=== PATIENT | female | born 1945 | race Caucasian/White ===

== ENCOUNTER 2018-07-01 05:32 | Outpatient (RCR) | payer MEDICARE, SELFPAY ==
[2018-07-01] MEDS: Normal Saline Flush 10 ML SYR IVP (10:55)
[2018-07-01 11:17] LABS: Abs Immature Grans 0.14 k/cumm (0.0-0.09); HGB 9.4 g/dL (12.0-15.5); Mean Corp. HGB Concentration 31.3 g/dL (32.0-36.0); Mean Corpuscular Hemoglobin 35.6 pg (27.0-33.0); Mean Corpuscular Volume 113.6 fL (80-95); Mean Platelet Volume 10.5 fL (8.0-11.0); RBC 2.64 m/cumm (4.00-5.20); RBC Distribution Width 15.3 % (11.7-14.6); White Blood Cell Count 5.48 k/cumm (4.4-10.8)
[2018-07-01 11:37] LABS: Absolute Lymphocyte Count 0.93 k/cumm (1.2-3.4); Absolute Monocyte Count 0.44 k/cumm (0.11-0.7); Absolute Neutrophil Count 4.06 k/cumm (1.2-6.7); Diff Comment Manual Differential; Nucleated RBC 1 /100WBC; Platelet Count 137 x1000/uL (130-400)
[2018-07-01 11:38] LABS: Basophilic Stippling Present; Macrocytosis 3+; Polychromasia Present
[2018-07-17] MEDS: Normal Saline Flush 10 ML SYR IVP (13:25)
[2018-07-17] MEDS: Heparin 500 UNITS/5 ML SYRINGE IV (13:25)
[2018-07-17 14:01] LABS: Abs Immature Grans 0.37 k/cumm (0.0-0.09); Absolute Basophil Count 0.04 k/cumm (0.0-0.2); HCT 33.4 % (36.0-46.0); HGB 10.4 g/dL (12.0-15.5); Mean Corp. HGB Concentration 31.1 g/dL (32.0-36.0); Mean Corpuscular Hemoglobin 33.9 pg (27.0-33.0); Mean Corpuscular Volume 108.8 fL (80-95); Mean Platelet Volume 8.5 fL (8.0-11.0); Platelet Count 270 x1000/uL (130-400); RBC 3.07 m/cumm (4.00-5.20); RBC Distribution Width 16.4 % (11.7-14.6); White Blood Cell Count 4.17 k/cumm (4.4-10.8)
[2018-07-17 14:25] LABS: ALT 14 U/L (12-78); AST 11 U/L (15-37); Albumin 2.5 g/dL (3.4-5.0); Alkaline Phosphatase 92 U/L (46-116); Anion Gap 10.5 mmol/L (3-11); BUN 17 mg/dL (7-18); Bilirubin, Total 0.8 mg/dL (0.2-1.0); CO2 25.5 mmol/L (21.0-32.0); CREATININE 1.41 mg/dL (0.55-1.02); Calcium 10.7 mg/dL (8.5-10.1); Chloride 103 mmol/L (98-107); Estimated GFR 36.66 (mL/min/1.73m2); Glucose 110 mg/dL (70-100); Magnesium 1.1 mg/dL (1.8-2.4); Potassium 3.4 mmol/L (3.5-5.1); Sodium 139 mmol/L (136-145); Total Protein 8.6 g/dL (6.4-8.2)
[2018-07-17 14:27] LABS: Absolute Lymphocyte Count 1.21 k/cumm (1.2-3.4); Absolute Monocyte Count 0.58 k/cumm (0.11-0.7); Absolute Neutrophil Count 1.79 k/cumm (1.2-6.7); Atypical Lymphocytes % 1
[2018-07-17 14:30] LABS: Hypochromasia 1+; Macrocytosis 1+; Polychromasia Present
[2018-07-20 10:24] LABS: Kappa Free Light Chain 0.33 mg/dl (0.33-1.94); Lambda Free Light Chain <0.44 mg/dl (0.57-2.63)
[2018-07-20 11:25] LABS: IgA <13 mg/dL (85-499); IgG 2894 mg/dL (610-1616); IgM <12 mg/dL (35-242)
[2018-07-20 13:41] LABS: Monoclonal Spike 37.5 %; Total Protein 7.5 g/dl (6.3-8.2)
== END 2018-07-24 ==
LOC: INF 07-17 05:32
PROVIDERS: PCP Family Medicine; Visit Provider Internal Medicine Hematology & Oncology
DX: C90.00 Multiple myeloma not having achieved remission (principal); Z45.2 Encounter for adjustment and management of vascular access device
CPT/HCPCS: 36591 ×2; 80053; 82784; 83735; 83883; 84165; 85025

== ENCOUNTER 2018-07-08 13:06 | Emergency (ER) | payer MEDICARE, SELFPAY ==
[2018-07-08] VITALS (22 sets, daily range): BP systolic 98–161; BP diastolic 60–92; PULSE 84–115; RESP 13–24; TEMP 37.1–37.2; O2SAT 92–99
--- NOTE | 2018-07-08 13:37 | ED.GENADUL ---
Disposition Clinical Impression: CHF (congestive heart failure), Neutropenia, Shortness of breath Disposition: HOME Condition: Stable Instructions: Pulmonary Edema (ED) Additional Instructions: your lab work showed you have low neutrophils. You also have mild amount of fluid in your lung increase your morning dose of lasix to 80mg follow up with your primary care office within a week if you have worsening shortness of breath or fevers return to the emergency department Prescriptions: Levofloxacin 750 mg PO DAILY #6 tablet Medical Decision Making - Lab Data Results reviewed for labs ordered during visit: Yes - EKG Data -: EKG Interpreted by Me EKG shows normal: axis, intervals, QRS complexes Rate: normal Interpretation: no acute changes 07/08/18 13:40 afib, no acute changes when compared to old ekg - Radiology Data Radiology results: image reviewed interpreted by me: mild chf - Medical Decision Making pt here with general weakness and shortness of breath for a week or so. No chest pian or changes on ekg so doubt acs. No hypoxia or tachycardia so doubt Pe at this time and no evidence of dvt on exam. Will eval for anemia and obtain chest xray to eval for pna pt remains stable, does have some pulmonary edema on chest xray, no infiltrate seen, will order IV lasix given her hx of chf and is on lasix at home. Awaiting lab work labs show neutropenia with anc of 700 but no fevers here and denies any fevers at home. Otherwise no acute changes. she is ambulating on her own without significant work of breathing and normal oxygen levels. She feels well enough to try d/c and f/u with pcp, will have her f/u with pcp's office within a week, return precautions given. She has no fever now, will start on neutropenic antibacterial ppx with levofloxacin - Differential Diagnosis anemia, pna, electrolyte abnormality History of Present Illness - General Chief complaint: RespSymp Stated complaint: UNKNOWN Time Seen by Provider: 07/08/18 13:08 Source: patient Limitations: no limitations - History of Present Illness Initial comments: 72 yo female with hx of afib on eliquis, multiple myeloma who receives chemotherapy twice a week per pt, who comes in with chief complaint of general weakness and shortness of breath over the course of the week and was sent here by the cancer center for these symptoms. She denies chest pain, vomit, travel, fevers. She is speaking in full sentencess in no respiratory distress with clear lungs, no calf pain and no lower extremity edema MD Complaint: weakness Onset/Timin -: week(s) Improves with: none Worsens with: none Associated Symptoms: shortness of breath Treatments Prior to Arrival: none - Related Data Arm Brace [Elbow Support] 1 each MC DAILY #1 each 02/16/15 Nystatin 0 TP QID #60 g 05/30/16 Diphenoxylate HCl/Atropine [Diphenoxylate-Atrop 2.5-0.025] 1 - 2 tab PO QID PRN #30 tab-cap 01/14/17 Nystatin Powder 60 GM [Mycostatin Powder] 1 applic TP TID #1 jar 11/24/17 Acyclovir [Zovirax] 400 mg PO BID #60 tab-cap 02/10/18 Dexamethasone 0.5 mg PO DAILY #30 tab 03/31/18 Ondansetron [Ondansetron Odt] 4 mg SL Q8H PRN PRN 04/26/18 Apixaban [Eliquis] 5 mg PO BID #180 tab 04/29/18 Metoprolol Succinate 100 mg PO DAILY #90 tab-cap 04/29/18 Proventil Hfa 2 puff IH Q6H PRN #1 inhaler 04/29/18 Sucralfate 1 g PO AC and HS #360 tab-cap 05/21/18 Magnesium Oxide [Magnesium] 400 mg PO BID #180 capsule 05/26/18 Potassium Chloride 20 meq PO BID #180 tab.er.prt 05/26/18 Cetirizine HCl 10 mg PO DAILY #30 tab-cap 06/19/18 Furosemide 2 tab PO BID #360 tab-cap 06/19/18 Omeprazole 40 mg PO DAILY #90 tab-cap 06/19/18 Levofloxacin 750 mg PO DAILY #6 tablet 07/08/18 Allergies Allergy/AdvReac Type Severity Reaction Status Date / Time adhesive Allergy Unverified 07/08/18 13:33 rosuvastatin calcium AdvReac Dizziness/L Unverified 07/08/18 13:33 [From Crestor] ightheade simvastatin [From Zocor] AdvReac Dizziness/L Unverified 07/08/18 13:33 ightheade Review of Systems Constitutional: denies: chills, fever Respiratory: shortness of breath. denies: cough Cardiovascular: denies: chest pain Gastrointestinal: denies: nausea, vomiting Skin: denies: rash Neurological: denies: headache Comment: All other systems reviewed and negative Past Medical History - Past Medical History Medical history: AFIB, cancer (Multiple myeloma), CHF, diabetes, DVT, GERD, hypertension Surgical history: cholecystectomy, hysterectomy - Social History Alcohol use: none Drug use: none General Exam - General Limitations: no limitations General appearance: alert, in no apparent distress - Head Head exam: Present: atraumatic - Eye Eye exam: Present: normal apperance - ENT ENT exam: Present: mucous membranes moist - Neck Neck exam: Present: normal inspection, full ROM. Absent: meningismus - Respiratory Respiratory exam: Present: normal lung sounds bilaterally. Absent: respiratory distress - Cardiovascular Cardiovascular Exam: Present: regular rate, normal rhythm, normal heart sounds, other (Hr 90 on my exam) - GI/Abdominal GI/Abdominal exam: Present: soft. Absent: distended, tenderness, guarding, rebound, rigid - Extremities Exam Extremities exam: Present: normal inspection. Absent: pedal edema, calf tenderness - Neurological Exam Neurological exam: Present: alert, oriented X3 - Psychiatric Psychiatric exam: Present: normal affect - Skin Skin exam: Present: warm Course Vital Signs - 24 hr 0815/18 13:29 Temperature 98.8 F Pulse 115 H Respiratory 22 Rate Blood Pressure 130/60 Pulse Oximetry 96
[2018-07-08 14:13] LABS: Abs Immature Grans 0.02 k/cumm (0.0-0.09); Absolute Basophil Count 0.01 k/cumm (0.0-0.2); HCT 31.8 % (36.0-46.0); HGB 9.9 g/dL (12.0-15.5); Mean Corp. HGB Concentration 31.1 g/dL (32.0-36.0); Mean Corpuscular Hemoglobin 34.1 pg (27.0-33.0); Mean Corpuscular Volume 109.7 fL (80-95); Mean Platelet Volume 10.4 fL (8.0-11.0); Platelet Count 121 x1000/uL (130-400); RBC Distribution Width 15.8 % (11.7-14.6)
--- NOTE | 2018-07-08 14:23 | DI.REPORT_ITS ---
SYMPTOMS/DIAGNOSIS: SHORTNESS OF BREATH AP AND LATERAL CHEST: The heart is enlarged. There is an indwelling right subclavian catheter, the tip of which overlies the junction of the SVC and right atrium. Upper lobes of the lungs appear generally clear with some mildly increased markings in the lower lobes and a small amount of fluid in the fissures; the findings appear increased in comparison with a chest film of 04/26/2018. The findings are suggestive of early or mild CHF. Pneumonitis not excluded on the basis of this examination, clinical correlation requested.
[2018-07-08 14:26] LABS: INR 1.2 (1.0-3.5); PTT Activated 24.3 sec (21.0-31.4); Prothrombin Time 11.8 sec (9.3-10.8)
[2018-07-08 14:33] LABS: ALT 25 U/L (12-78); AST 12 U/L (15-37); Albumin 2.3 g/dL (3.4-5.0); Alkaline Phosphatase 133 U/L (46-116); Anion Gap 10.9 mmol/L (3-11); BUN 12 mg/dL (7-18); Bilirubin, Total 1.1 mg/dL (0.2-1.0); CO2 27.1 mmol/L (21.0-32.0); CREATININE 1.09 mg/dL (0.55-1.02); Calcium 9.9 mg/dL (8.5-10.1); Chloride 101 mmol/L (98-107); Estimated GFR 49.34 (mL/min/1.73m2); Glucose 132 mg/dL (70-100); Magnesium 1.5 mg/dL (1.8-2.4); NT-proBNP 4172 pg/mL; Potassium 3.2 mmol/L (3.5-5.1); Sodium 139 mmol/L (136-145); Total Protein 8.2 g/dL (6.4-8.2); Troponin I < 0.02 ng/mL (0.00-0.06)
[2018-07-08 14:35] LABS: White Blood Cell Count 1.39 k/cumm (4.4-10.8)
[2018-07-08] MEDS: Furosemide 40 MG/4 ML VIAL IVP (14:35)
[2018-07-08 14:36] LABS: Absolute Eosinophil Count 0.03 k/cumm (0.0-0.7); Absolute Lymphocyte Count 0.33 k/cumm (1.2-3.4); Absolute Monocyte Count 0.31 k/cumm (0.11-0.7); Diff Comment Manual Differential; Macrocytosis 2+; Polychromasia Present
[2018-07-08] MEDS: Normal Saline Flush 10 ML SYR IVP (14:36)
[2018-07-08 15:07] LABS: Bilirubin Negative (Negative); Blood Negative (Negative); Clarity Clear; Glucose Negative (Negative); Ketones Negative (Negative); Leukocyte Esterase Negative (Negative); Nitrite Negative (Negative); Specific Gravity 1.015 (1.005-1.025); Urobilinogen 0.2 EU/dL (Up TO 0.2)
[2018-07-08 15:23] LABS: Epithelial Cells Moderate HPF (Negative); RBC Negative (0-2); WBC 0-2 HPF (0-5)
[2018-07-08 15:24] LABS: Bacteria Few HPF (Negative); C & S Indicated? No/Sq. Contamination; Casts 0-2 Coarse Granular LPF (Negative); Crystals Negative HPF (Negative); Mucus Trace (Negative); Other Cells Few Transitional (Negative)
[2018-07-08] MEDS: LEVOFLOXACIN 500 MG, LEVOFLOXACIN 250 MG 750 MG PO (16:09)
[2018-07-08] MEDS: Heparin 500 UNITS/5 ML SYRINGE (16:09)
--- NOTE | 2018-07-09 11:53 | PDOC.ERCMPRO ---
Care Management Progress Note 07/09-Dr. Lieberman requested assistance with a PCP f/u in one week for respiratory. Dr. Hardwick is PCP. Referral faxed to [facility] this am.
== END 2018-07-08 16:00 | disposition home or self-care (01) ==
PROVIDERS: Emergency Provider Emergency Medicine; PCP Family Medicine
DX: I50.9 Heart failure, unspecified (principal); I11.0 Hypertensive heart disease with heart failure; D70.9 Neutropenia, unspecified; C90.00 Multiple myeloma not having achieved remission; Z95.828 Presence of other vascular implants and grafts; Z79.899 Other long term (current) drug therapy; I10 Essential (primary) hypertension
CPT/HCPCS: 36591; 71046; 93005; 96374; 99284; 99285; J1940; 80053; 81003; 81015; 83735; 83880; 84484; 85025; 85610; 85730; 93010

== ENCOUNTER 2018-08-06 00:52 | Outpatient (CLI) | payer MEDICARE, SELFPAY ==
--- NOTE | 2018-08-06 13:30 | DI.CT_ITS ---
SYMPTOMS/DIAGNOSIS: MULTIPLE MYELOMA, C90.02, DJD, SEVERE LOW BACK PAIN AND LEFT HIP PAIN, ? LYTIC LESION CT SCAN OF THE PELVIS: Noncontrast CT scan of the pelvis was performed. There are numerous lytic lesions seen within the bones. The largest lesion is seen in the right S1 segment of the sacrum. It measures 4.5 cm transverse x 2.3 cm AP x 1.7 cm craniocaudad. It extends into the right S1 neural foramen and abuts the right S1 nerve root. There is mild narrowing of the neural foramen which results. No acute fracture or dislocation is identified. The left hip shows moderate joint space narrowing. Periarticular spurring of both the acetabulum and the femoral head is noted. Subchondral sclerosis and cyst formation is present. There does appear to be a small joint effusion. No acute fracture or dislocation is present. Similar moderate degenerative changes are seen in the right hip. Joint space narrowing, subchondral sclerosis and cyst formation with periarticular osteophytes are noted. There is diverticulosis seen in the sigmoid colon, but no findings to suggest acute diverticulitis. The urinary bladder appears grossly unremarkable. IMPRESSION: 1. Numerous lytic lesions in the bones consistent with the patient's known history of multiple myeloma. The largest lesion is seen in the right S1 segment of the sacrum. It causes mild narrowing of the right S1 neural foramen. 2. Moderate degenerative changes seen of the hips bilaterally.
== END 2018-08-06 01:12 ==
PROVIDERS: PCP Family Medicine; Visit Provider Internal Medicine Hematology & Oncology
DX: C90.02 Multiple myeloma in relapse (principal); M54.5 Low back pain; M25.552 Pain in left hip; M89.8X8 Other specified disorders of bone, other site; M16.0 Bilateral primary osteoarthritis of hip
CPT/HCPCS: 72192

== ENCOUNTER 2018-08-09 19:38 | Emergency (ER) | payer MEDICARE, SELFPAY ==
[2018-08-09 20:09] VITALS: BP 130/85; PULSE 109; RESP 24; TEMP 36.4; O2SAT 97
--- NOTE | 2018-08-09 20:23 | W.ED.GENAD ---
Discharge Plan Disposition Patient Disposition: HOME Condition: Improving Discharge Details Chief Complaint: Nk/Back Pain Clinical Impression: Contusion Primary Care Provider: Wilbert Hardwick ED Provider: Efraín Sen Home Meds and New Rx's Prescriptions: Continue metoprolol succinate 100 mg tablet extended release 24 hr 100 mg PO DAILY RF: 0 omeprazole 40 mg capsule,delayed release(DR/EC) 40 mg PO DAILY RF: 0 nystatin 100,000 unit/gram powder 1 applic TP TID RF: 0 furosemide 40 mg tablet 40 mg PO BID RF: 0 sucralfate 1 gram tablet 1 gm PO BID RF: 0 diphenoxylate-atropine 2.5-0.025 mg tablet 1 tab PO Q6H PRNRF: 0 albuterol sulfate [Proventil HFA] 90 mcg/actuation HFA aerosol inhaler 2 puff IH Q6H PRNRF: 0 dexamethasone 0.5 mg tablet 0.5 mg PO DAILY RF: 0 apixaban [Eliquis] 5 mg tablet 5 mg PO BID RF: 0 acyclovir 400 mg tablet 400 mg PO BID Qty: 180 RF: 4 arm brace [CONCEPCIÓN Elbow Brace] 1 EACH misc 1 ea Miscellaneous DAILY Qty: 1 RF: 0 hydrocortisone [Anusol-HC] 30 GM cream with perineal applicator RC BID Qty: 30 RF: 2 potassium chloride 20 mEq tablet extended release 20 meq PO BID Qty: 180 RF: 4 nystatin 60 GM powder 1 applic Topical TID Qty: 1 RF: 0 Discharge Instructions Instructions: Contusion in Adults (ED) Additional Instructions: May use the small number of hydrocodone, if needed, for severe pain. This contains Tylenol also do not use additional Tylenol with this medication. Remove the Lidoderm patch in 12 hours time. Ms. subsequently apply ice to reduce discomfort. Continue regular medications. Return to the emergency department for any acute concerns Medical Decision Making MDM Narrative Medical decision making narrative: 72-year-old female presents with back pain after a fall while undergoing outpatient CT scan this week. She has accompanied a past medical history and is anticoagulated. She is at risk for underlying rib or spine fracture, bleeding, and has tenderness throughout the paraspinous muscular beds on exam. Patient given oral analgesia and referred for CT images. No acute findings and with her known underlying multiple myeloma lytic lesions. No fractures Patient improved and states her pain has been resolved with the administered medications. She will require small amount of oral analgesic. I consider for the use of opiates and she was given a total 4 tablets for home. She will remove the Lidoderm patch that was placed in the emergency department. HPI - General Adult General Mode of arrival: wheelchair. Date/Time Provider Initiated Documentation: 08/09/18 19:56. Limitations to Documentation: no limitations. Information obtained by: patient and family. History of Present Illness 72 year old F presents to the emergency department with the chief complaint of Back pain, described as moderate, Quality is described as aching, and is localized to the back. Patient neck and abdomen. Patient started experiencing this day(s) and it has been constant. Rest improves symptom(s), Movement worsens symptoms . Patient notes no other symptoms.; denies chest pain, cough, loss of appetite and nausea/vomiting. Patient did receive the following treatments prior to arrival, heat therapy HPI Narrative: 72-year-old female who had outpatient CT scan of her pelvis earlier in the week and while transferring to the CT table, fell backwards striking a table with her midthoracic region and falling to the floor with an axial load of the spine. Since that time she has had persistent, achy, mid thoracic pain that radiates to her neck. Is somewhat ameliorated with Tylenol and a warm mole rub at home. No shortness of breath. She has been eating and drinking normally. No numbness, tingling, weakness of the extremities. Related Data Home Medications Medication Instructions Recorded Confirmed arm brace [CONCEPCIÓN Elbow Brace] #1 ea 02/16/15 hydrocortisone [Anusol-HC] 0 RC BID #30 g 07/10/18 albuterol sulfate HFA 90 2 puff IH Q6H PRN 08/04/18 08/09/18 mcg/actuation aerosol inhaler apixaban 5 mg tablet 5 mg PO BID 08/04/18 08/09/18 dexamethasone 0.5 mg tablet 0.5 mg PO DAILY tab 08/04/18 08/09/18 diphenoxylate-atropine 2.5 1 tab PO Q6H PRN tab 08/04/18 08/09/18 mg-0.025 mg tablet furosemide 40 mg tablet 40 mg PO BID 08/04/18 08/09/18 metoprolol succinate ER 100 mg 100 mg PO DAILY 08/04/18 08/09/18 tablet,extended release 24 hr nystatin 100,000 unit/gram topical 1 applic TP TID 08/04/18 08/09/18 powder omeprazole 40 mg capsule,delayed 40 mg PO DAILY 08/04/18 08/09/18 release sucralfate 1 gram tablet 1 gm PO BID tab 08/04/18 08/09/18 Previous Rx's Medication Instructions Recorded nystatin 1 applic TOPICAL TID #1 jar 11/24/17 potassium chloride ER 20 mEq 20 meq PO BID #180 tab 07/30/18 tablet,extended release acyclovir 400 mg tablet 400 mg PO BID #180 tab 08/04/18 Allergies Allergy/AdvReac Type Severity Reaction Status Date / Time adhesive Allergy Unverified 08/09/18 20:14 rosuvastatin calcium AdvReac Dizziness/L Unverified 08/09/18 20:14 [From Crestor] ightheade simvastatin [From Zocor] AdvReac Dizziness/L Unverified 08/09/18 20:14 ightheade General Stated Complaint: Nk/Back Pain ROSLYN: 3 Review of Systems Review of Systems 8 systems reviewed and otherwise neg PFSH Family History Sister Neoplasm Brother Myocardial infarction Medical History Atrial fibrillation DVT (deep venous thrombosis) Essential hypertension GERD (gastroesophageal reflux disease) Multiple myeloma Social History current occupation: HOUSEWIFE Smoking/Tobacco Use Status: Former Tobacco Use second hand exposure: Yes alcohol intake: never Surgical History Cholecystectomy (07/17/16) Hysterectomy, Laproscopic (~1985) Ligation of fallopian tube Oophrectomy, Both (~1989) Exam Narrative Exam Narrative: GEN: awake, alert, oriented 3. Pleasant, well groomed, interactive. HEAD: Normocephalic, atraumatic ENT: Mucous membranes moist, oropharynx unremarkable, External ear exam unremarkable EYES: PERRL, EOMI NECK: Full ROM, no DELFINO, no menigismus CHEST/RESP: Posterior thoracic cage, approximately mid thoracic levels tender to palpation without crepitus, clear to auscultation bilateral, no wheeze/rhonchi/rales CARDIOVASCULAR: RRR, no murmur, rub elizabeth. 2+ Rad pulse bilateral Back: No step-off or deformity, no midline pain. There is paraspinous pain and spasm. ABDOMEN: Soft, nontender, no mass. +Bowel sounds EXT: Full ROM, no edema, no rash Neuro: Grossly normal neurologic exam, conversant, interactive. Psych: Speech fluent, thoughts congruent, affect normal Course Vital Signs Temperature 36.4 C L 08/09/18 20:09 Pulse 109 H 08/09/18 20:09 Respiratory Rate 24 08/09/18 20:09 Blood Pressure 130/85 08/09/18 20:09 Pulse Oximetry 97 08/09/18 20:09 Temperature 36.4 C L 08/09/18 20:09 Pulse 109 H 08/09/18 20:09 Respiratory Rate 24 08/09/18 20:09 Blood Pressure 130/85 08/09/18 20:09 Pulse Oximetry 97 08/09/18 20:09
--- NOTE | 2018-08-09 20:27 | ED.GENADUL_ITS ---
Discharge Plan Disposition Patient Disposition: HOME Condition: Improving Discharge Details Chief Complaint: Nk/Back Pain Clinical Impression: Contusion Primary Care Provider: Wilbert Hardwick ED Provider: Efraín eSn Home Meds and New Rx's Prescriptions: Continue metoprolol succinate 100 mg tablet extended release 24 hr 100 mg PO DAILY RF: 0 omeprazole 40 mg capsule,delayed release(DR/EC) 40 mg PO DAILY RF: 0 nystatin 100,000 unit/gram powder 1 applic TP TID RF: 0 furosemide 40 mg tablet 40 mg PO BID RF: 0 sucralfate 1 gram tablet 1 gm PO BID RF: 0 diphenoxylate-atropine 2.5-0.025 mg tablet 1 tab PO Q6H PRNRF: 0 albuterol sulfate [Proventil HFA] 90 mcg/actuation HFA aerosol inhaler 2 puff IH Q6H PRNRF: 0 dexamethasone 0.5 mg tablet 0.5 mg PO DAILY RF: 0 apixaban [Eliquis] 5 mg tablet 5 mg PO BID RF: 0 acyclovir 400 mg tablet 400 mg PO BID Qty: 180 RF: 4 arm brace [CONCEPCIÓN Elbow Brace] 1 EACH misc 1 ea Miscellaneous DAILY Qty: 1 RF: 0 hydrocortisone [Anusol-HC] 30 GM cream with perineal applicator RC BID Qty: 30 RF: 2 potassium chloride 20 mEq tablet extended release 20 meq PO BID Qty: 180 RF: 4 nystatin 60 GM powder 1 applic Topical TID Qty: 1 RF: 0 Discharge Instructions Instructions: Contusion in Adults (ED) Additional Instructions: May use the small number of hydrocodone, if needed, for severe pain. This contains Tylenol also do not use additional Tylenol with this medication. Remove the Lidoderm patch in 12 hours time. Ms. subsequently apply ice to reduce discomfort. Continue regular medications. Return to the emergency department for any acute concerns Medical Decision Making MDM Narrative Medical decision making narrative: 72-year-old female presents with back pain after a fall while undergoing outpatient CT scan this week. She has accompanied a past medical history and is anticoagulated. She is at risk for underlying rib or spine fracture, bleeding, and has tenderness throughout the paraspinous muscular beds on exam. Patient given oral analgesia and referred for CT images. No acute findings and with her known underlying multiple myeloma lytic lesions. No fractures Patient improved and states her pain has been resolved with the administered medications. She will require small amount of oral analgesic. I consider for the use of opiates and she was given a total 4 tablets for home. She will remove the Lidoderm patch that was placed in the emergency department. HPI - General Adult General Mode of arrival: wheelchair . Date/Time Provider Initiated Documentation: 08/09/18 19:56 . Limitations to Documentation: no limitations . Information obtained by: patient and family . History of Present Illness 72 year old F presents to the emergency department with the chief complaint of Back pain, described as moderate, Quality is described as aching, and is localized to the back. Patient neck and abdomen. Patient started experiencing this day(s) and it has been constant. Rest improves symptom(s) , Movement worsens symptoms . Patient notes no other symptoms.; denies chest pain, cough, loss of appetite and nausea/vomiting. Patient did receive the following treatments prior to arrival, heat therapy HPI Narrative: 72-year-old female who had outpatient CT scan of her pelvis earlier in the week and while transferring to the CT table, fell backwards striking a table with her midthoracic region and falling to the floor with an axial load of the spine. Since that time she has had persistent, achy, mid thoracic pain that radiates to her neck. Is somewhat ameliorated with Tylenol and a warm mole rub at home. No shortness of breath. She has been eating and drinking normally. No numbness, tingling, weakness of the extremities. Related Data Home Medications Medication Instructions Recorded Confirmed arm brace [CONCEPCIÓN Elbow Brace] #1 ea 02/16/15 hydrocortisone [Anusol-HC] 0 RC BID #30 g 07/10/18 albuterol sulfate HFA 90 2 puff IH Q6H PRN 08/04/18 08/09/18 mcg/actuation aerosol inhaler apixaban 5 mg tablet 5 mg PO BID 08/04/18 08/09/18 dexamethasone 0.5 mg tablet 0.5 mg PO DAILY tab 08/04/18 08/09/18 diphenoxylate-atropine 2.5 1 tab PO Q6H PRN tab 08/04/18 08/09/18 mg-0.025 mg tablet furosemide 40 mg tablet 40 mg PO BID 08/04/18 08/09/18 metoprolol succinate ER 100 mg 100 mg PO DAILY 08/04/18 08/09/18 tablet,extended release 24 hr nystatin 100,000 unit/gram topical 1 applic TP TID 08/04/18 08/09/18 powder omeprazole 40 mg capsule,delayed 40 mg PO DAILY 08/04/18 08/09/18 release sucralfate 1 gram tablet 1 gm PO BID tab 08/04/18 08/09/18 Previous Rx's Medication Instructions Recorded nystatin 1 applic TOPICAL TID #1 jar 11/24/17 potassium chloride ER 20 mEq 20 meq PO BID #180 tab 07/30/18 tablet,extended release acyclovir 400 mg tablet 400 mg PO BID #180 tab 08/04/18 Allergies Allergy/AdvReac Type Severity Reaction Status Date / Time adhesive Allergy Unverified 08/09/18 20:14 rosuvastatin calcium AdvReac Dizziness/L Unverified 08/09/18 20:14 [From Crestor] ightheade simvastatin [From Zocor] AdvReac Dizziness/L Unverified 08/09/18 20:14 ightheade General Stated Complaint: Nk/Back Pain ROSLYN: 3 Review of Systems Review of Systems 8 systems reviewed and otherwise neg PFSH Family History Sister Neoplasm Brother Myocardial infarction Medical History Atrial fibrillation DVT (deep venous thrombosis) Essential hypertension GERD (gastroesophageal reflux disease) Multiple myeloma Social History current occupation: HOUSEWIFE Smoking/Tobacco Use Status: Former Tobacco Use second hand exposure: Yes alcohol intake: never Surgical History Cholecystectomy (07/17/16) Hysterectomy, Laproscopic (~1985) Ligation of fallopian tube Oophrectomy, Both (~1989) Exam Narrative Exam Narrative: GEN: awake, alert, oriented 3. Pleasant, well groomed, interactive. HEAD: Normocephalic, atraumatic ENT: Mucous membranes moist, oropharynx unremarkable, External ear exam unremarkable EYES: PERRL, EOMI NECK: Full ROM, no DELFINO, no menigismus CHEST/RESP: Posterior thoracic cage, approximately mid thoracic levels tender to palpation without crepitus, clear to auscultation bilateral, no wheeze/ rhonchi/rales CARDIOVASCULAR: RRR, no murmur, rub elizabeth. 2+ Rad pulse bilateral Back: No step-off or deformity, no midline pain. There is paraspinous pain and spasm. ABDOMEN: Soft, nontender, no mass. +Bowel sounds EXT: Full ROM, no edema, no rash Neuro: Grossly normal neurologic exam, conversant, interactive. Psych: Speech fluent, thoughts congruent, affect normal Course Vital Signs Temperature 36.4 C L 08/09/18 20:09 Pulse 109 H 08/09/18 20:09 Respiratory Rate 24 08/09/18 20:09 Blood Pressure 130/85 08/09/18 20:09 Pulse Oximetry 97 08/09/18 20:09 Temperature 36.4 C L 08/09/18 20:09 Pulse 109 H 08/09/18 20:09 Respiratory Rate 24 08/09/18 20:09 Blood Pressure 130/85 08/09/18 20:09 Pulse Oximetry 97 08/09/18 20:09
[2018-08-09] MEDS: HYDROcodone 5/Acetaminophen 325 TAB PO ×2 (20:46→23:02)
[2018-08-09] MEDS: Lidocaine 5% Patch 1 PATCH TP (20:48)
--- NOTE | 2018-08-09 21:24 | DI.CT_ITS ---
SYMPTOMS/DIAGNOSIS: MID THORACIC PAIN AFTER FALL CT SCAN OF THE CHEST, ABDOMEN AND PELVIS: CT scan of the chest, abdomen and pelvis was performed without intravenous contrast material. Comparison examination is 08/06/18. CT SCAN OF THE ABDOMEN AND PELVIS: Lack of contrast does limit evaluation of the abdominal organs. The unenhanced liver, spleen, pancreas and adrenal glands are unremarkable. The patient is status post cholecystectomy. No biliary ductal dilatation is seen. Renal cortical atrophy is present. No obstructive uropathy is identified. The urinary bladder is intact. The patient appears to be status post hysterectomy. The bowel shows no evidence of obstruction or inflammation. No findings to suggest an acute appendicitis are present. The aorta is of normal caliber. No significant abdominal or pelvic adenopathy, ascites or pneumoperitoneum is seen. There are again seen multiple lytic lesions in the bones consistent with the patient's known diagnosis of multiple myeloma. The most prominent lesion is seen in the sacrum. Degenerative changes are seen in the hips bilaterally and throughout the spine. No fracture or dislocation is identified. IMPRESSION: 1. No acute fracture or dislocation. 2. Lytic areas in the skeleton most consistent with the patient's history of multiple myeloma. CT SCAN OF THE CHEST: The thoracic aorta is of normal caliber. The heart is enlarged. No significant pericardial effusion is seen. Coronary artery calcifications are present. There is an indwelling central venous catheter. The tip of the catheter is seen at the junction of the superior vena cava and right atrium. No significant mediastinal or hilar adenopathy is present. No pleural effusion or pneumothorax is identified. There is scarring in the lungs. Dependent atelectatic changes are seen in the bases. No focal consolidating infiltrates are seen. The tracheobronchial tree is unremarkable. Lytic lesions are seen in the skeleton consistent with the patient's history of multiple myeloma. No acute fracture is identified. IMPRESSION: 1. No acute fracture. 2. Lytic areas in the skeleton consistent with the patient's history of multiple myeloma. 3. Scarring or atelectasis in the lungs.
--- NOTE | 2018-08-09 22:36 | DI.VRAD_ITS ---
EXAM: CT Abdomen and Pelvis Without Intravenous Contrast CLINICAL HISTORY: 72 years old, female; Injury; Fall; Initial encounter; Blunt trauma, Injury details: Mid thoracic pain after fall HX multiple myeloma TECHNIQUE: Axial computed tomography images of the abdomen and pelvis without intravenous contrast. All CT scans at this facility use at least one of these dose optimization techniques: automated exposure control; mA and/or kV adjustment per patient size (includes targeted exams where dose is matched to clinical indication); or iterative reconstruction. Coronal and sagittal reformatted images were created and reviewed. COMPARISON: No relevant prior studies available. FINDINGS: Lung bases: Unremarkable. No mass. No consolidation. ABDOMEN: Liver: Unremarkable. Gallbladder and bile ducts: Status post cholecystectomy. No ductal dilation. Pancreas: Unremarkable. No ductal dilation. Spleen: Unremarkable. No splenomegaly. Adrenals: Unremarkable. No mass. Kidneys and ureters: No hydronephrosis. Nonobstructing calcified stone lower pole left kidney. 5 mm left renal cortical angiomyolipoma. Areas of left renal cortical scarring. Stomach and bowel: Scattered colon diverticuli without evidence of diverticulitis. No obstruction. PELVIS: Appendix: Normal appendix. Bladder: Unremarkable. No stones. Reproductive: Status post hysterectomy. ABDOMEN and PELVIS: Intraperitoneal space: Unremarkable. No free air. No significant fluid collection. Bones/joints: No acute fracture. Scattered lytic areas within the skeleton in this patient with history of multiple myeloma. Once again, the largest area is located within the right sacrum. No dislocation. Soft tissues: Unremarkable. Vasculature: Unremarkable. No abdominal aortic aneurysm. Lymph nodes: Unremarkable. No enlarged lymph nodes. IMPRESSION: 1. No acute intra-abdominal or pelvic findings. 2. No hydronephrosis. Nonobstructing calcified stone lower pole left kidney. 3. Scattered colon diverticuli without evidence of diverticulitis. 4. No acute fracture. 5. Scattered lytic areas within the skeleton in this patient with history of multiple myeloma. Once again, the largest area is located within the right sacrum. EXAM: CT Chest Without Intravenous Contrast CLINICAL HISTORY: 72 years old, female; Injury; Fall; Initial encounter; Blunt trauma, Injury details: Mid thoracic pain after fall HX multiple myeloma TECHNIQUE: Axial computed tomography images of the chest without intravenous contrast. All CT scans at this facility use at least one of these dose optimization techniques: automated exposure control; mA and/or kV adjustment per patient size (includes targeted exams where dose is matched to clinical indication); or iterative reconstruction. Coronal and sagittal reformatted images were created and reviewed. COMPARISON: CT pelvis wo 08/06/2018, CT abdomen/pelvis 04/26/2018 FINDINGS: Lungs: Areas of linear parenchymal scarring or subsegmental collapse / atelectasis in each lung. Pleural space: Unremarkable. No pneumothorax. No significant effusion. Heart: Coronary artery and aortic valve annulus calcification. No significant pericardial effusion. Bones/joints: No acute fracture. Scattered small lytic areas within the skeleton in this patient with history of multiple myeloma. No dislocation. Soft tissues: Unremarkable. Vasculature: Unremarkable. No thoracic aortic aneurysm. Lymph nodes: Unremarkable. No enlarged lymph nodes. Gallbladder and bile ducts: Status post cholecystectomy. IMPRESSION: 1. No acute fracture. 2. Scattered small lytic areas within the skeleton in this patient with history of multiple myeloma. 3. Areas of linear parenchymal scarring or subsegmental collapse / atelectasis in each lung. 4. No pneumothorax or pleural fluid collection. Dictated and Authenticated by: Ozzie Robbins MD. Ordering:ROHAN COOK MD
[2018-08-09 23:02] VITALS: PULSE 98; RESP 24; TEMP 36.4; O2SAT 97
== END 2018-08-09 23:02 | disposition home or self-care (01) ==
PROVIDERS: Emergency Provider Emergency Medicine; PCP Family Medicine
DX: S30.0XXA Contusion of lower back and pelvis, initial encounter (principal); W18.30XA Fall on same level, unspecified, initial encounter; C90.00 Multiple myeloma not having achieved remission; Z79.01 Long term (current) use of anticoagulants; I48.91 Unspecified atrial fibrillation; I10 Essential (primary) hypertension
CPT/HCPCS: 71250; 99284; 74176

== ENCOUNTER 2018-08-12 01:50 | Outpatient (RCR) | payer MEDICARE, SELFPAY ==
[2018-07-29 08:55] LABS: Abs Immature Grans 0.39 k/cumm (0.0-0.09); HGB 10.6 g/dL (12.0-15.5); Mean Corp. HGB Concentration 31.2 g/dL (32.0-36.0); Mean Corpuscular Hemoglobin 33.7 pg (27.0-33.0); Mean Corpuscular Volume 107.9 fL (80-95); Mean Platelet Volume 9.7 fL (8.0-11.0); RBC 3.15 m/cumm (4.00-5.20); RBC Distribution Width 16.8 % (11.7-14.6); White Blood Cell Count 7.36 k/cumm (4.4-10.8)
[2018-07-29] MEDS: Normal Saline Flush 10 ML SYR IVP (08:55)
[2018-07-29 09:10] LABS: Absolute Eosinophil Count 0.22 k/cumm (0.0-0.7); Absolute Lymphocyte Count 0.96 k/cumm (1.2-3.4); Absolute Monocyte Count 0.81 k/cumm (0.11-0.7); Absolute Neutrophil Count 5.15 k/cumm (1.2-6.7); Diff Comment Manual Differential; Macrocytosis 2+; Platelet Count 162 x1000/uL (130-400)
[2018-07-29 09:11] LABS: Polychromasia Present
[2018-07-29 09:16] LABS: ALT 11 U/L (12-78); AST 10 U/L (15-37); Albumin 2.6 g/dL (3.4-5.0); Alkaline Phosphatase 85 U/L (46-116); Anion Gap 8.8 mmol/L (3-11); BUN 26 mg/dL (7-18); Bilirubin, Total 0.8 mg/dL (0.2-1.0); CO2 25.2 mmol/L (21.0-32.0); CREATININE 1.65 mg/dL (0.55-1.02); Calcium 10.6 mg/dL (8.5-10.1); Chloride 102 mmol/L (98-107); Estimated GFR 30.58 (mL/min/1.73m2); Glucose 163 mg/dL (70-100); Potassium 3.8 mmol/L (3.5-5.1); Sodium 136 mmol/L (136-145); Total Protein 8.9 g/dL (6.4-8.2)
[2018-07-30 10:04] LABS: Kappa Free Light Chain 0.42 mg/dl (0.33-1.94); Lambda Free Light Chain <0.44 mg/dl (0.57-2.63)
[2018-07-30 11:23] LABS: IgA <13 mg/dL (85-499); IgG 3457 mg/dL (610-1616); IgM <12 mg/dL (35-242)
[2018-07-30 12:51] LABS: Albumin 37.4 % (55.8-66.1); Monoclonal Spike 38.1 %; Total Protein 7.8 g/dl (6.3-8.2)
[2018-08-05] MEDS: Normal Saline Flush 10 ML SYR IVP (11:50)
[2018-08-05 12:20] LABS: Abs Immature Grans 0.11 k/cumm (0.0-0.09); HGB 10.1 g/dL (12.0-15.5); Mean Corp. HGB Concentration 31.6 g/dL (32.0-36.0); Mean Corpuscular Volume 107.7 fL (80-95); Mean Platelet Volume 9.9 fL (8.0-11.0); RBC 2.97 m/cumm (4.00-5.20); RBC Distribution Width 17.2 % (11.7-14.6); White Blood Cell Count 5.02 k/cumm (4.4-10.8)
[2018-08-05 12:41] LABS: ALT 12 U/L (12-78); AST 11 U/L (15-37); Absolute Eosinophil Count 0.05 k/cumm (0.0-0.7); Absolute Monocyte Count 0.65 k/cumm (0.11-0.7); Absolute Neutrophil Count 3.46 k/cumm (1.2-6.7); Albumin 2.5 g/dL (3.4-5.0); Alkaline Phosphatase 88 U/L (46-116); Anion Gap 7.1 mmol/L (3-11); BUN 22 mg/dL (7-18); Bilirubin, Total 0.8 mg/dL (0.2-1.0); CO2 28.9 mmol/L (21.0-32.0); CREATININE 1.24 mg/dL (0.55-1.02); Calcium 11.2 mg/dL (8.5-10.1); Chloride 100 mmol/L (98-107); Estimated GFR 42.52 (mL/min/1.73m2); Glucose 122 mg/dL (70-100); Sodium 136 mmol/L (136-145); Total Protein 8.9 g/dL (6.4-8.2)
[2018-08-05 12:42] LABS: Hypochromasia 2+; Macrocytosis 2+; Polychromasia Present
[2018-08-05 12:46] LABS: Platelet Count 176 x1000/uL (130-400)
[2018-08-12] MEDS: Heparin 500 UNITS/5 ML SYRINGE IV (11:20)
[2018-08-12] MEDS: Normal Saline Flush 10 ML SYR IVP (11:20)
[2018-08-12 11:44] LABS: HCT 31.6 % (36.0-46.0); HGB 9.8 g/dL (12.0-15.5); Mean Corpuscular Hemoglobin 33.4 pg (27.0-33.0); Mean Corpuscular Volume 107.8 fL (80-95); Mean Platelet Volume 9.9 fL (8.0-11.0); Platelet Count 173 x1000/uL (130-400); RBC 2.93 m/cumm (4.00-5.20); RBC Distribution Width 17.5 % (11.7-14.6); White Blood Cell Count 3.39 k/cumm (4.4-10.8)
[2018-08-12 11:56] LABS: ALT 13 U/L (12-78); AST 9 U/L (15-37); Albumin 2.3 g/dL (3.4-5.0); Alkaline Phosphatase 87 U/L (46-116); Anion Gap 8.8 mmol/L (3-11); BUN 19 mg/dL (7-18); Bilirubin, Total 0.7 mg/dL (0.2-1.0); CO2 28.2 mmol/L (21.0-32.0); CREATININE 1.39 mg/dL (0.55-1.02); Calcium 10.3 mg/dL (8.5-10.1); Chloride 102 mmol/L (98-107); Estimated GFR 37.27 (mL/min/1.73m2); Glucose 154 mg/dL (70-100); Magnesium 1.7 mg/dL (1.8-2.4); Potassium 4.2 mmol/L (3.5-5.1); Sodium 139 mmol/L (136-145); Total Protein 8.2 g/dL (6.4-8.2)
[2018-08-12 12:06] LABS: Absolute Neutrophil Count 1.86 k/cumm (1.2-6.7)
[2018-08-12 12:07] LABS: Absolute Basophil Count 0.03 k/cumm (0.0-0.2); Absolute Eosinophil Count 0.07 k/cumm (0.0-0.7); Absolute Monocyte Count 0.47 k/cumm (0.11-0.7)
[2018-08-12 12:11] LABS: Absolute Lymphocyte Count 0.68 k/cumm (1.2-3.4)
[2018-08-12 12:14] LABS: Anisocytosis 1+; Diff Comment Manual Differential; Macrocytosis 1+; Polychromasia Present
[2018-08-13 11:11] LABS: IgA <13 mg/dL (85-499); IgG 3200 mg/dL (610-1616); IgM <12 mg/dL (35-242); Kappa Free Light Chain 0.33 mg/dl (0.33-1.94); Lambda Free Light Chain <0.44 mg/dl (0.57-2.63)
[2018-08-13 14:20] LABS: Albumin 37.9 % (55.8-66.1); Monoclonal Spike 39.7 %; Total Protein 7.4 g/dl (6.3-8.2)
== END 2018-08-23 23:59 | disposition home or self-care (01) ==
LOC: INF 01:50
PROVIDERS: PCP Family Medicine; Visit Provider Internal Medicine Hematology & Oncology
DX: C90.00 Multiple myeloma not having achieved remission (principal); Z45.2 Encounter for adjustment and management of vascular access device
CPT/HCPCS: 36591; 80053; 82784; 83735; 83883; 84165; 85025

== ENCOUNTER 2018-08-22 09:15 | Inpatient (IN) | payer MEDICARE, SELFPAY ==
[2018-08-22] VITALS (10 sets, daily range): BP systolic 118–141; BP diastolic 79–103; PULSE 69–108; RESP 16–24; TEMP 35.5–37.2; O2SAT 91–99
--- NOTE | 2018-08-22 09:51 | NUR.NOTE ---
Nursing Note: Pt O2 dropped to 86% on RA, started on 2L NC, O2 back up to 93%. Telemetry attached. Indy Le, DO aware. Continue to monitor
[2018-08-22 09:55] LABS: Abs Immature Grans 0.18 k/cumm (0.0-0.09); Absolute Monocyte Count 0.57 k/cumm (0.11-0.7); HCT 29.4 % (36.0-46.0); HGB 9.4 g/dL (12.0-15.5); Mean Corpuscular Hemoglobin 33.8 pg (27.0-33.0); Mean Corpuscular Volume 105.8 fL (80-95); Mean Platelet Volume 8.7 fL (8.0-11.0); Platelet Count 170 x1000/uL (130-400); RBC 2.78 m/cumm (4.00-5.20); RBC Distribution Width 18.4 % (11.7-14.6); White Blood Cell Count 2.87 k/cumm (4.4-10.8)
[2018-08-22 10:07] LABS: ALT 41 U/L (12-78); AST 20 U/L (15-37); Albumin 2.2 g/dL (3.4-5.0); Alkaline Phosphatase 101 U/L (46-116); Anion Gap 13.8 mmol/L (3-11); BUN 42 mg/dL (7-18); Bilirubin, Direct 0.15 mg/dL (0.00-0.20); Bilirubin, Total 0.6 mg/dL (0.2-1.0); CO2 20.2 mmol/L (21.0-32.0); CREATININE 1.67 mg/dL (0.55-1.02); Calcium 9.7 mg/dL (8.5-10.1); Chloride 100 mmol/L (98-107); Estimated GFR 30.07 (mL/min/1.73m2); Glucose 240 mg/dL (70-100); Magnesium 1.7 mg/dL (1.8-2.4); Potassium 4.2 mmol/L (3.5-5.1); Sodium 134 mmol/L (136-145); Total Protein 7.8 g/dL (6.4-8.2)
[2018-08-22 10:09] LABS: Troponin I < 0.02 ng/mL (0.00-0.06)
--- NOTE | 2018-08-22 10:16 | W.ED.GENAD ---
Discharge Plan Disposition Condition: Improving Discharge Details Chief Complaint: SOB Reason For Visit: CHF,HCAP,H/O MULTIPLE MYELOMA Admit Date/Time: 08/22/18 12:03 Admit Provider: Jadon Jain Attending Provider: Jadon Jain Primary Care Provider: Wilbert Hardwick ED Provider: Nanette Le Discharge Instructions Activity:: Activity as Tolerated Equipment/Supplies:: No Equipment Needed Diet:: As Tolerated Discharge Orders Discharge Orders: Discharge Order (Routine); Ordered 08/24/18 Ordered By: Jadon Jain Discharge Data Discharge Date/Time-TO BE ENTERED AT DEPARTURE: 08/22/18 13:15 Medical Decision Making 73-year-old female with a history of atrial fibrillation on Eliquis, multiple myeloma, DVT, GERD, hypertension, hyperlipidemia and CHF who presents for shortness of breath since infusion for multiple myeloma 2 days ago. She had also admitted to a history of chronic lower abdominal pain and diarrhea which she states is also been worse since her infusion. She denies chest pain, fever, nausea, vomiting or urinary symptoms. Vitals on arrival notes a heart rate of 108, oxygen saturation 91% on room air, afebrile at 99. Blood pressure 128/80 and normal respiratory rate. 09 --EKG notes a rate of 110, atrial fibrillation, occasional PVCs, but no acute ST elevation or depression, QTc 471, QRS 84. Upon my assessment, heart rate ranged on the monitor between 80s-100s, atrial fibrillation. Patient appears mildly short of breath, speaks in broken sentences at times but otherwise appears in no acute respiratory distress. Diminished breath sounds at bases bilaterally. Abdomen is soft and she has very minimal lower abdominal tenderness to palpation. She has 1+ pitting edema in her bilateral lower extremities. Differential diagnosis includes infusion reaction, acute CHF, pneumonia, [place], PE, dehydration, electrolyte abnormality. Will place an IV, small bolus IV fluids, cardiac workup including d-dimer, BNP, urinalysis and chest x-ray. 1120 --labs reviewed and note a white blood cell count of 2.87. Patient is usually low due to her multiple myeloma. ANC 1607. BNP 05926. D-dimer 1348. Troponin negative. Creatinine 1.67. GFR 30. Glucose 240. Bicarb 20.2. Anion gap 13.8. Chest x-ray notes an opacity in the left lower lobe which may indicate atelectasis or pneumonia. In the setting of worsening shortness of breath, hypoxia, recent admission to [facility] 2 months ago, will treat for HCAP. Patient may have dehydration also in the setting of an acute CHF exacerbation. Her chest x-ray noted stable fluid. Will give a dose of 40 Lasix IV. Her elevated d-dimer may be related to her multiple myeloma. As she is already on Eliquis and and she has reduced kidney function, unable to do CT chest and unlikely to have PE on anticoagulation so we will hold on VQ scan at this time. Do not suspect acute DKA or HHNK, but can continue to monitor the glucose with recheck BMP which may have improved after fluids. Will admit for IV antibiotics, diuresis, oxygen therapy, and continued observation and patient is agreeable. 1155 --discussed with hospitalist Dr. Jain - accepts pt for admission. HPI General Mode of arrival: wheelchair. Date/Time Provider Initiated Documentation: 08/22/18 09:16. Limitations to Documentation: no limitations. Information obtained by: patient. HPI Narrative: Patient is a 73-year-old female with a history of multiple myeloma, DVT, atrial fibrillation, GERD, hypertension, CHF and hyperlipidemia who presents for shortness of breath since infusion for multiple myeloma 2 days ago. Patient states she was told to expect shortness of breath after her infusion. Her granddaughter states that she receives these infusions sometimes weekly and was told by her oncologist Dr. Khan that due to increased protein, they increase the dose this week which would possibly cause shortness of breath. She states she was on a lower dose given only on Wednesdays but this past week she received it on Friday and . She denies any shortness of breath. She is also complaining of chronic diarrhea for years but states this became more frequent 2 days ago and she noticed some bright red blood with diarrhea yesterday. She does have a history of hemorrhoids and has minimal rectal pain when she has a bowel movement but otherwise denies any pain at present. She states she has had diarrhea every time she eats over the past couple days. She also admits to frequent lower abdominal pain for several years, that has been worse over the past 2 days with the diarrhea. She describes it as cramping and denies any pain at present. She otherwise denies fever, nausea, vomiting, urinary symptoms, leg pain or swelling. She states she has been eating normally. She states she was on antibiotics for fluid in my lungs a few weeks ago for 5 days. She is unsure of the name of the antibiotic. Related Data Home Medications Medication Instructions Recorded Confirmed arm brace [CONCEPCIÓN Elbow Brace] #1 ea 02/16/15 nystatin 1 applic TOPICAL TID #1 jar 11/24/17 08/22/18 hydrocortisone [Anusol-HC] 0 RC BID #30 g 07/10/18 potassium chloride ER 20 mEq 20 meq PO BID #180 tab 07/30/18 08/22/18 tablet,extended release acyclovir 400 mg tablet 400 mg PO BID #180 tab 08/04/18 08/22/18 albuterol sulfate HFA 90 2 puff IH Q6H PRN 08/04/18 08/22/18 mcg/actuation aerosol inhaler apixaban 5 mg tablet 5 mg PO BID 08/04/18 08/22/18 dexamethasone 0.5 mg tablet 0.5 mg PO DAILY tab 08/04/18 08/22/18 diphenoxylate-atropine 2.5 1 tab PO Q6H PRN tab 08/04/18 08/22/18 mg-0.025 mg tablet furosemide 40 mg tablet 40 mg PO BID 08/04/18 08/22/18 metoprolol succinate ER 100 mg 100 mg PO DAILY 08/04/18 08/22/18 tablet,extended release 24 hr nystatin 100,000 unit/gram topical 1 applic TP TID 08/04/18 08/22/18 powder omeprazole 40 mg capsule,delayed 40 mg PO DAILY 08/04/18 08/22/18 release sucralfate 1 gram tablet 1 gm PO BID tab 08/04/18 08/22/18 amoxicillin-pot clavulanate 1 tab PO BID #10 tab 08/24/18 Previous Rx's Medication Instructions Recorded nystatin 1 applic TOPICAL TID #1 jar 11/24/17 potassium chloride ER 20 mEq 20 meq PO BID #180 tab 07/30/18 tablet,extended release acyclovir 400 mg tablet 400 mg PO BID #180 tab 08/04/18 amoxicillin-pot clavulanate 1 tab PO BID #10 tab 08/24/18 Allergies Allergy/AdvReac Type Severity Reaction Status Date / Time adhesive Allergy Unverified 08/22/18 09:29 rosuvastatin calcium AdvReac Dizziness/L Unverified 08/22/18 09:29 [From Crestor] ightheade simvastatin [From Zocor] AdvReac Dizziness/L Unverified 08/22/18 09:29 ightheade General Stated Complaint: SOB ROSLYN: 3 Review of Systems Review of Systems All systems reviewed & are unremarkable except as noted in HPI and below Constitutional Denies chills, Denies excessive sweating, Denies fatigue, Denies fever(s), Denies weakness and Denies weight loss Eyes Reports system reviewed and no additional complaints, except as docu and Denies blurry vision ENT Denies vertigo, Denies dizziness, Denies otalgia, Denies nasal congestion, Denies sore throat and Denies throat swelling Cardiovascular Denies chest pain, Denies syncope, Denies rapid heart rate and Reports dyspnea Respiratory Reports dyspnea Gastrointestinal Denies abdominal pain, Reports diarrhea and Denies vomiting Genitourinary Denies hematuria, Denies dysuria and Denies flank pain Musculoskeletal Denies back pain and Denies joint swelling Integumentary/Breasts Denies lesions and Denies rash Neurologic Denies behavioral changes, Denies confusion, Denies vertigo, Denies dizziness, Denies syncope and Denies weakness Psychiatric Denies behavioral changes, Denies confusion and Denies depression Endocrine Denies excessive sweating and Denies fatigue Hematologic/Lymphatic Denies easy bruising and Denies lymphadenopathy Allergic/Immunologic Denies throat swelling PFSH Family History Sister Neoplasm Brother Myocardial infarction Medical History Atrial fibrillation DVT (deep venous thrombosis) Essential hypertension GERD (gastroesophageal reflux disease) Multiple myeloma Social History current occupation: HOUSEWIFE Smoking/Tobacco Use Status: Former Tobacco Use second hand exposure: Yes alcohol intake: never Surgical History Cholecystectomy (07/17/16) Hysterectomy, Laproscopic (~1985) Ligation of fallopian tube Oophrectomy, Both (~1989) Exam Const General: cooperative and healthy appearing Orientation: alert and awake [facility] Head: normal to inspection Ears: hearing grossly normal bilaterally and external ears normal General nose exam: external nose normal Face and sinus: normal facial exam Mouth: oral mucosae normal Teeth and gingiva: dentition normal Throat: posterior oropharynx normal Eyes General: appearance normal, both eyes and all related structures Eyelids: eyelids normal Pupils: PERRL EOM: EOM intact bilaterally Neck Neck: normal visual inspection Lymphatic: no lymphadenopathy noted Chest Chest: normal inspection of the chest Resp Effort & Inspection: normal respiratory effort and not able to speak in complete sentences Auscultation: diminished lung sounds bilaterally (at bases) Cardio Rate: regular rate Rhythm: regular rhythm GI Inspection: normal to inspection Palpation: soft, not firm, no guarding, no hepatosplenomegaly, no masses and tender (minimal across lower abdomen) Auscultation: normal bowel sounds Back/Spine/Pelvis Back: no CVA tenderness Skin General skin exam: no rashes or lesions noted Neuro General: alert and awake Cognition: normal cognition Speech: speech normal Gait: normal gait Motor: muscle tone normal throughout Sensory Exam: no sensory deficits noted Extrem General: normal to inspection, full ROM, normal capillary refill and edema (1+ b/l lower extremities) Psych Appearance: grossly normal Mental Status: mental status grossly normal Speech and Movement: speech and movement normal Affect: normal affect Thought Process: normal Course Vital Signs Temperature 99.0 F 08/22/18 09:27 Pulse 108 H 08/22/18 09:27 Respiratory Rate 24 08/22/18 09:27 Blood Pressure 128/80 08/22/18 09:27 Pulse Oximetry 91 L 08/22/18 09:27 Temperature 99.0 F 08/22/18 09:27 Temperature Source Temporal Artery Scan 08/22/18 09:27 Pulse 108 H 08/22/18 09:27 Respiratory Rate 17 08/22/18 09:29 Respiratory Effort 08/22/18 09:29 Respiratory Depth Normal 08/22/18 09:29 Blood Pressure 128/80 08/22/18 09:27 Pulse Oximetry 91 L 08/22/18 09:27 Oxygen Delivery Method Room Air 08/22/18 09:27 Oxygen Flow Rate 0 08/22/18 09:27 Pain Level 7 08/22/18 09:27 Lab/Test Results Lab/Test Results: Laboratory Tests Range/Units 08/22/18 09:47 Sodium (136-145) mmol/L 134 L Potassium (3.5-5.1) mmol/L 4.2 Chloride (98-107) mmol/L 100 Carbon Dioxide (21.0-32.0) mmol/L 20.2 L Anion Gap (3-11) mmol/L 13.8 H BUN (7-18) mg/dL 42 H Creatinine (0.55-1.02) mg/dL 1.67 H Estimated GFR/1.73 m2 (mL/min/1.73m2) 30.07 Glucose (70-100) mg/dL 240 H Calcium (8.5-10.1) mg/dL 9.7 Magnesium (1.8-2.4) mg/dL 1.7 L Total Bilirubin (0.2-1.0) mg/dL 0.6 Conjugated Bilirubin (0.00-0.20) mg/dL 0.15 AST (15-37) U/L 20 ALT (12-78) U/L 41 Alkaline Phosphatase (46-116) U/L 101 Troponin I (0.00-0.06) ng/mL < 0.02 Total Protein (6.4-8.2) g/dL 7.8 Albumin (3.4-5.0) g/dL 2.2 L
[2018-08-22] MEDS: oxyCODONE 5 MG TAB PO (10:19)
--- NOTE | 2018-08-22 10:20 | ED.GENADUL_ITS ---
Discharge Plan Disposition Condition: Improving Discharge Details Chief Complaint: SOB Reason For Visit: CHF,HCAP,H/O MULTIPLE MYELOMA Admit Date/Time: 08/22/18 12:03 Admit Provider: Jadon Jain Attending Provider: Jadon Jain Primary Care Provider: Wilbert Hardwick ED Provider: Nanette Le Discharge Instructions Activity:: Activity as Tolerated Equipment/Supplies:: No Equipment Needed Diet:: As Tolerated Discharge Orders Discharge Orders: Discharge Order (Routine); Ordered 08/24/18 Ordered By: Jadon Jain Discharge Data Discharge Date/Time-TO BE ENTERED AT DEPARTURE: 08/22/18 13:15 Medical Decision Making 73-year-old female with a history of atrial fibrillation on Eliquis, multiple myeloma, DVT, GERD, hypertension, hyperlipidemia and CHF who presents for shortness of breath since infusion for multiple myeloma 2 days ago. She had also admitted to a history of chronic lower abdominal pain and diarrhea which she states is also been worse since her infusion. She denies chest pain, fever , nausea, vomiting or urinary symptoms. Vitals on arrival notes a heart rate of 108, oxygen saturation 91% on room air, afebrile at 99. Blood pressure 128/80 and normal respiratory rate. 09 --EKG notes a rate of 110, atrial fibrillation, occasional PVCs, but no acute ST elevation or depression, QTc 471, QRS 84. Upon my assessment, heart rate ranged on the monitor between 80s-100s, atrial fibrillation. Patient appears mildly short of breath, speaks in broken sentences at times but otherwise appears in no acute respiratory distress. Diminished breath sounds at bases bilaterally. Abdomen is soft and she has very minimal lower abdominal tenderness to palpation. She has 1+ pitting edema in her bilateral lower extremities. Differential diagnosis includes infusion reaction, acute CHF, pneumonia, MO, PE , dehydration, electrolyte abnormality. Will place an IV, small bolus IV fluids , cardiac workup including d-dimer, BNP, urinalysis and chest x-ray. 1120 --labs reviewed and note a white blood cell count of 2.87. Patient is usually low due to her multiple myeloma. ANC 1607. BNP 35419. D-dimer 1348. Troponin negative. Creatinine 1.67. GFR 30. Glucose 240. Bicarb 20.2. Anion gap 13.8. Chest x-ray notes an opacity in the left lower lobe which may indicate atelectasis or pneumonia. In the setting of worsening shortness of breath, hypoxia, recent admission to [facility] 2 months ago, will treat for HCAP. Patient may have dehydration also in the setting of an acute CHF exacerbation. Her chest x-ray noted stable fluid. Will give a dose of 40 Lasix IV. Her elevated d-dimer may be related to her multiple myeloma. As she is already on Eliquis and and she has reduced kidney function, unable to do CT chest and unlikely to have PE on anticoagulation so we will hold on VQ scan at this time. Do not suspect acute DKA or HHNK, but can continue to monitor the glucose with recheck BMP which may have improved after fluids. Will admit for IV antibiotics , diuresis, oxygen therapy, and continued observation and patient is agreeable. 1155 --discussed with hospitalist Dr. Jain - accepts pt for admission. HPI General Mode of arrival: wheelchair . Date/Time Provider Initiated Documentation: 08/22/18 09:16 . Limitations to Documentation: no limitations . Information obtained by: patient . HPI Narrative: Patient is a 73-year-old female with a history of multiple myeloma, DVT, atrial fibrillation, GERD, hypertension, CHF and hyperlipidemia who presents for shortness of breath since infusion for multiple myeloma 2 days ago. Patient states she was told to expect shortness of breath after her infusion. Her granddaughter states that she receives these infusions sometimes weekly and was told by her oncologist Dr. Khan that due to increased protein , they increase the dose this week which would possibly cause shortness of breath. She states she was on a lower dose given only on Wednesdays but this past week she received it on Friday and . She denies any shortness of breath. She is also complaining of chronic diarrhea for years but states this became more frequent 2 days ago and she noticed some bright red blood with diarrhea yesterday. She does have a history of hemorrhoids and has minimal rectal pain when she has a bowel movement but otherwise denies any pain at present. She states she has had diarrhea every time she eats over the past couple days. She also admits to frequent lower abdominal pain for several years, that has been worse over the past 2 days with the diarrhea. She describes it as cramping and denies any pain at present. She otherwise denies fever, nausea, vomiting, urinary symptoms, leg pain or swelling. She states she has been eating normally. She states she was on antibiotics for fluid in my lungs a few weeks ago for 5 days. She is unsure of the name of the antibiotic. Related Data Home Medications Medication Instructions Recorded Confirmed arm brace [CONCEPCIÓN Elbow Brace] #1 ea 02/16/15 nystatin 1 applic TOPICAL TID #1 jar 11/24/17 08/22/18 hydrocortisone [Anusol-HC] 0 RC BID #30 g 07/10/18 potassium chloride ER 20 mEq 20 meq PO BID #180 tab 07/30/18 08/22/18 tablet,extended release acyclovir 400 mg tablet 400 mg PO BID #180 tab 08/04/18 08/22/18 albuterol sulfate HFA 90 2 puff IH Q6H PRN 08/04/18 08/22/18 mcg/actuation aerosol inhaler apixaban 5 mg tablet 5 mg PO BID 08/04/18 08/22/18 dexamethasone 0.5 mg tablet 0.5 mg PO DAILY tab 08/04/18 08/22/18 diphenoxylate-atropine 2.5 1 tab PO Q6H PRN tab 08/04/18 08/22/18 mg-0.025 mg tablet furosemide 40 mg tablet 40 mg PO BID 08/04/18 08/22/18 metoprolol succinate ER 100 mg 100 mg PO DAILY 08/04/18 08/22/18 tablet,extended release 24 hr nystatin 100,000 unit/gram topical 1 applic TP TID 08/04/18 08/22/18 powder omeprazole 40 mg capsule,delayed 40 mg PO DAILY 08/04/18 08/22/18 release sucralfate 1 gram tablet 1 gm PO BID tab 08/04/18 08/22/18 amoxicillin-pot clavulanate 1 tab PO BID #10 tab 08/24/18 Previous Rx's Medication Instructions Recorded nystatin 1 applic TOPICAL TID #1 jar 11/24/17 potassium chloride ER 20 mEq 20 meq PO BID #180 tab 07/30/18 tablet,extended release acyclovir 400 mg tablet 400 mg PO BID #180 tab 08/04/18 amoxicillin-pot clavulanate 1 tab PO BID #10 tab 08/24/18 Allergies Allergy/AdvReac Type Severity Reaction Status Date / Time adhesive Allergy Unverified 08/22/18 09:29 rosuvastatin calcium AdvReac Dizziness/L Unverified 08/22/18 09:29 [From Crestor] ightheade simvastatin [From Zocor] AdvReac Dizziness/L Unverified 08/22/18 09:29 ightheade General Stated Complaint: SOB ROSLYN: 3 Review of Systems Review of Systems All systems reviewed & are unremarkable except as noted in HPI and below Constitutional Denies chills, Denies excessive sweating, Denies fatigue, Denies fever(s), Denies weakness and Denies weight loss Eyes Reports system reviewed and no additional complaints, except as docu and Denies blurry vision ENT Denies vertigo, Denies dizziness, Denies otalgia, Denies nasal congestion, Denies sore throat and Denies throat swelling Cardiovascular Denies chest pain, Denies syncope, Denies rapid heart rate and Reports dyspnea Respiratory Reports dyspnea Gastrointestinal Denies abdominal pain, Reports diarrhea and Denies vomiting Genitourinary Denies hematuria, Denies dysuria and Denies flank pain Musculoskeletal Denies back pain and Denies joint swelling Integumentary/Breasts Denies lesions and Denies rash Neurologic Denies behavioral changes, Denies confusion, Denies vertigo, Denies dizziness, Denies syncope and Denies weakness Psychiatric Denies behavioral changes, Denies confusion and Denies depression Endocrine Denies excessive sweating and Denies fatigue Hematologic/Lymphatic Denies easy bruising and Denies lymphadenopathy Allergic/Immunologic Denies throat swelling PFSH Family History Sister Neoplasm Brother Myocardial infarction Medical History Atrial fibrillation DVT (deep venous thrombosis) Essential hypertension GERD (gastroesophageal reflux disease) Multiple myeloma Social History current occupation: HOUSEWIFE Smoking/Tobacco Use Status: Former Tobacco Use second hand exposure: Yes alcohol intake: never Surgical History Cholecystectomy (07/17/16) Hysterectomy, Laproscopic (~1985) Ligation of fallopian tube Oophrectomy, Both (~1989) Exam Const General: cooperative and healthy appearing Orientation: alert and awake [facility] Head: normal to inspection Ears: hearing grossly normal bilaterally and external ears normal General nose exam: external nose normal Face and sinus: normal facial exam Mouth: oral mucosae normal Teeth and gingiva: dentition normal Throat: posterior oropharynx normal Eyes General: appearance normal, both eyes and all related structures Eyelids: eyelids normal Pupils: PERRL EOM: EOM intact bilaterally Neck Neck: normal visual inspection Lymphatic: no lymphadenopathy noted Chest Chest: normal inspection of the chest Resp Effort & Inspection: normal respiratory effort and not able to speak in complete sentences Auscultation: diminished lung sounds bilaterally (at bases) Cardio Rate: regular rate Rhythm: regular rhythm GI Inspection: normal to inspection Palpation: soft, not firm, no guarding, no hepatosplenomegaly, no masses and tender (minimal across lower abdomen) Auscultation: normal bowel sounds Back/Spine/Pelvis Back: no CVA tenderness Skin General skin exam: no rashes or lesions noted Neuro General: alert and awake Cognition: normal cognition Speech: speech normal Gait: normal gait Motor: muscle tone normal throughout Sensory Exam: no sensory deficits noted Extrem General: normal to inspection, full ROM, normal capillary refill and edema (1+ b /l lower extremities) Psych Appearance: grossly normal Mental Status: mental status grossly normal Speech and Movement: speech and movement normal Affect: normal affect Thought Process: normal Course Vital Signs Temperature 99.0 F 08/22/18 09:27 Pulse 108 H 08/22/18 09:27 Respiratory Rate 24 08/22/18 09:27 Blood Pressure 128/80 08/22/18 09:27 Pulse Oximetry 91 L 08/22/18 09:27 Temperature 99.0 F 08/22/18 09:27 Temperature Source Temporal Artery Scan 08/22/18 09:27 Pulse 108 H 08/22/18 09:27 Respiratory Rate 17 08/22/18 09:29 Respiratory Effort 08/22/18 09:29 Respiratory Depth Normal 08/22/18 09:29 Blood Pressure 128/80 08/22/18 09:27 Pulse Oximetry 91 L 08/22/18 09:27 Oxygen Delivery Method Room Air 08/22/18 09:27 Oxygen Flow Rate 0 08/22/18 09:27 Pain Level 7 08/22/18 09:27 Lab/Test Results Lab/Test Results: Laboratory Tests Range/Units 08/22/18 09:47 Sodium (136-145) mmol/L 134 L Potassium (3.5-5.1) mmol/L 4.2 Chloride (98-107) mmol/L 100 Carbon Dioxide (21.0-32.0) mmol/L 20.2 L Anion Gap (3-11) mmol/L 13.8 H BUN (7-18) mg/dL 42 H Creatinine (0.55-1.02) mg/dL 1.67 H Estimated GFR/1.73 m2 (mL/min/1.73m2) 30.07 Glucose (70-100) mg/dL 240 H Calcium (8.5-10.1) mg/dL 9.7 Magnesium (1.8-2.4) mg/dL 1.7 L Total Bilirubin (0.2-1.0) mg/dL 0.6 Conjugated Bilirubin (0.00-0.20) mg/dL 0.15 AST (15-37) U/L 20 ALT (12-78) U/L 41 Alkaline Phosphatase (46-116) U/L 101 Troponin I (0.00-0.06) ng/mL < 0.02 Total Protein (6.4-8.2) g/dL 7.8 Albumin (3.4-5.0) g/dL 2.2 L
[2018-08-22 10:21] LABS: Absolute Eosinophil Count 0.03 k/cumm (0.0-0.7); Absolute Lymphocyte Count 0.66 k/cumm (1.2-3.4); Absolute Neutrophil Count 1.61 k/cumm (1.2-6.7); Atypical Lymphocytes % 5
[2018-08-22 10:22] LABS: Anisocytosis 2+; Diff Comment Manual Differential; Macrocytosis 2+; Nucleated RBC 3 /100WBC
[2018-08-22 10:35] LABS: NT-proBNP 23597 pg/mL
--- NOTE | 2018-08-22 10:45 | DI.RAD_ITS ---
SYMPTOM/DIAGNOSIS: SHORTNESS OF BREATH, R/O ACUTE DISEASE AP AND LATERAL CHEST: 08/22 Examination was compared to previous examination of 07/08/18. The heart is enlarged. Indwelling right subclavian catheter noted. Diaphragm is elevated on the right. No gross pleural effusion seen. No definite focal infiltrate identified. Mild areas of atelectasis or scarring noted bilaterally, grossly unchanged from the previous exam. CONCLUSION: No definite acute change seen.
[2018-08-22 10:58] LABS: D-Dimer 1348 ng/mlFEU (<500)
--- NOTE | 2018-08-22 11:06 | DI.VRAD_ITS ---
EXAM: XR Chest, 2 Views EXAM DATE/TIME: 08/22/2018 9:45 AM CLINICAL HISTORY: 73 years old, female; Signs and symptoms; Shortness of breath; Patient HX: Increased SOB. TECHNIQUE: XR of the chest, 2 views. COMPARISON: CR CHEST 2 VIEWS PA,LAT 07/08/2018 2:09 PM FINDINGS: Lungs: Stable fluid in the minor fissure versus stable atelectasis Mild opacity in the left lower lobe may represent minimal atelectasis or pneumonia. Pleural space: Unremarkable. No pleural effusion. No pneumothorax. Heart/Mediastinum: Stable cardiomegaly. Vasculature: Stable MediPort. Upper abdomen: Elevated right hemidiaphragm Bones/joints: Osseous structures are stable IMPRESSION: Mild opacity in the left lower lobe may represent minimal atelectasis or pneumonia. Dictated and Authenticated by: Saul Ba MD. Ordering:DILAN PORTILLO MD
[2018-08-22 11:22] LABS: Bilirubin Negative (Negative); Blood Trace-lysed (Negative); Clarity Clear; Glucose Negative (Negative); Ketones Negative (Negative); Leukocyte Esterase Negative (Negative); Nitrite Negative (Negative); Specific Gravity 1.015 (1.005-1.025); Urobilinogen 0.2 EU/dL (Up TO 0.2); pH 5.5 (5-8)
[2018-08-22 11:32] LABS: Epithelial Cells Many HPF (Negative); RBC 0-2 (0-2); WBC Negative HPF (0-5)
[2018-08-22] MEDS: Furosemide 40 MG/4 ML VIAL IVP (11:32)
[2018-08-22 11:33] LABS: Bacteria Rare HPF (Negative); C & S Indicated? No; Casts Negative LPF (Negative); Crystals Moderate Amorphous HPF (Negative); Mucus Negative (Negative); Other Cells Moderate Renal (Negative)
[2018-08-22] MEDS: MAGNESIUM SULFATE 1 GM/100 ML BAG IVPB (11:33)
[2018-08-22 12:02] LABS: Lactate-non-spesis 4.2 mmol/L (0.6-1.4)
[2018-08-22] MEDS: PIPERACILLIN/TAZO 3.375 GM in Normal Saline 50 ML IVPB ×2 (12:26→17:12)
--- NOTE | 2018-08-22 12:48 | NUR.NOTE ---
Nursing Note: Verbal report given by Brandy MOSQUEDA to Med Surg
[2018-08-22] MEDS: VANCOMYCIN 750 MG in Normal Saline 250 ML 166.667 MG IVPB (13:04)
[2018-08-22 16:31] LABS: Lactate-non-spesis 3.1 mmol/L (0.6-1.4)
[2018-08-22] MEDS: Normal Saline Flush 10 ML SYR 40 ML (16:42)
--- NOTE | 2018-08-22 17:41 | W.PM.HP.N ---
Date of service: 08/22/18 Time of Service: 17:41 Assessment and Plan (1) Multiple myeloma: Current visit: Yes Status: Chronic Recently on chemotherapy, some of her symptoms may be attributed to side effects from the chemotherapy. Plan is to control her diarrhea and support her regarding the abdominal discomfort. No evidence of an acute abdomen at this time. Total white count is low but there is no evidence of neutropenia at this time. Trend her counts. Will ask palliative care to see her to discuss her future treatments and perspective. She is a full code. (2) Left lower lobe pneumonia: Current visit: Yes Status: Acute Acute left lower lobe pneumonitis in the setting of recent chemotherapy. Will treat as a healthcare associated pneumonia with vancomycin and Zosyn. Her renal function is acutely worse, will dose adjust the vancomycin as per pharmacy. (3) Atrial fibrillation: Current visit: Yes Status: Chronic Heart rate is well controlled. She is on Eliquis for anticoagulation. (4) Diabetes: Current visit: Yes Status: Suspected Follow fingerstick blood sugars. Will have moderate sliding scale aspart. History of Present Illness Chief Complaint: Left lower lobe pneumonia Narrative: This is a 73-year-old woman currently in active therapy for treatment of multiple myeloma. She received an infusion on this past Friday and for apparent recurrent disease. She has felt worse since that infusion. Her symptoms include lower abdominal pain and diarrhea for which she takes Imodium. She has been feeling increasingly short of breath. She denies fever chills or rigors. In the emergency room white count was suppressed at 2.87 thousand, lactate elevated at 4.2, chest x-ray showed a left lower lobe infiltrate. She is admitted for IV antibiotics, rule out sepsis. Review of Systems Review of Systems She has generally been feeling poorly since her chemotherapy earlier this week. She describes lower abdominal pain and diarrhea. She has had some shortness of breath. She has difficulty sitting up straight because it makes her feel choked in her throat and worsens pain in her abdomen. She has been able to lie relatively flat. She has been sleeping in her recliner/couch. She has not been having chest pain. She had some rectal bleeding in June, no recurrence. She is due for a surveillance PET scan. [facility] Family History Sister Neoplasm Brother Myocardial infarction Medical History Atrial fibrillation DVT (deep venous thrombosis) Essential hypertension GERD (gastroesophageal reflux disease) Multiple myeloma Social History current occupation: HOUSEWIFE Smoking/Tobacco Use Status: Former Tobacco Use second hand exposure: Yes alcohol intake: never Surgical History Cholecystectomy (07/17/16) Hysterectomy, Laproscopic (~1985) Ligation of fallopian tube Oophrectomy, Both (~1989) Meds Home Medications Medication Instructions Recorded Confirmed Type arm brace [CONCEPCIÓN Elbow Brace] #1 ea 02/16/15 History nystatin 1 applic TOPICAL TID #1 jar 11/24/17 08/22/18 Rx hydrocortisone [Anusol-HC] 0 RC BID #30 g 07/10/18 History potassium chloride ER 20 mEq 20 meq PO BID #180 tab 07/30/18 08/22/18 Rx tablet,extended release acyclovir 400 mg tablet 400 mg PO BID #180 tab 08/04/18 08/22/18 Rx albuterol sulfate HFA 90 2 puff IH Q6H PRN 08/04/18 08/22/18 History mcg/actuation aerosol inhaler apixaban 5 mg tablet 5 mg PO BID 08/04/18 08/22/18 History dexamethasone 0.5 mg tablet 0.5 mg PO DAILY tab 08/04/18 08/22/18 History diphenoxylate-atropine 2.5 1 tab PO Q6H PRN tab 08/04/18 08/22/18 History mg-0.025 mg tablet furosemide 40 mg tablet 40 mg PO BID 08/04/18 08/22/18 History metoprolol succinate ER 100 mg 100 mg PO DAILY 08/04/18 08/22/18 History tablet,extended release 24 hr nystatin 100,000 unit/gram topical 1 applic TP TID 08/04/18 08/22/18 History powder omeprazole 40 mg capsule,delayed 40 mg PO DAILY 08/04/18 08/22/18 History release sucralfate 1 gram tablet 1 gm PO BID tab 08/04/18 08/22/18 History Allergies Allergy/AdvReac Type Severity Reaction Status Date / Time adhesive Allergy Unverified 08/22/18 09:29 rosuvastatin calcium AdvReac Dizziness/L Unverified 08/22/18 09:29 [From Crestor] ightheade simvastatin [From Zocor] AdvReac Dizziness/L Unverified 08/22/18 09:29 ightheade Exam Const General: cooperative, no acute distress and other (She is lying at about 20 degrees on the stretcher. She states she is comfortable at this height.) Chest Chest: normal inspection of the chest Resp Effort & Inspection: normal respiratory effort Auscultation: clear to auscultation bilaterally (Dry breath sounds bilateral) Cardio Rate: regular rate Rhythm: regular rhythm Heart Sounds: S1 normal, S2 normal and no murmurs GI Inspection: normal to inspection (Huge abdomen) Palpation: soft, no guarding, no masses and nontender Skin General skin exam: no rashes or lesions noted Neuro General: alert, awake, oriented x3 and no focal motor deficits Extrem General: no clubbing, cyanosis or edema Results Imaging Chest x-ray: report reviewed Labs : 08/22/18 09:47 08/22/18 09:47 Laboratory Results - last 24 hr 08/22/18 08/22/18 08/22/18 09:47 09:47 09:47 WBC 2.87 L RBC 2.78 L Hgb 9.4 L Hct 29.4 L MCV 105.8 H MCH 33.8 H MCHC 32.0 RDW 18.4 H Plt Count 170 MPV 8.7 Immature Gran % See Differential Neutrophils % 53.0 Lymphocytes % 18.0 Monocytes % 20.0 Eosinophils % 1.0 Basophils % 0.0 Absolute Neutrophils 1.61 Band Neutrophils 3.0 Absolute Lymphocytes 0.66 L Absolute Monocytes 0.57 Absolute Eosinophils 0.03 Absolute Basophils 0.00 Nucleated RBCs 3 Differential Comment Manual differential Atypical Lymphocytes 5 RBC Morphology See below Anisocytosis 2+ Macrocytosis 2+ D-Dimer Sodium 134 L Potassium 4.2 Chloride 100 Carbon Dioxide 20.2 L Anion Gap 13.8 H BUN 42 H Creatinine 1.67 H Estimated GFR/1.73 m2 30.07 Glucose 240 H Lactate Calcium 9.7 Magnesium 1.7 L Total Bilirubin 0.6 Conjugated Bilirubin 0.15 AST 20 ALT 41 Alkaline Phosphatase 101 Troponin I < 0.02 NT-Pro-B Natriuret Pep 10538 H Total Protein 7.8 Albumin 2.2 L Urine Color Urine Clarity Urine pH Ur Specific [place] Urine Protein Urine Ketones Urine Blood Urine Nitrite Urine Bilirubin Urine Urobilinogen Ur Leukocyte Esterase Urine RBC Urine WBC Ur Epithelial Cells Urine Crystals Urine Bacteria Urine Casts Urine Mucus Urine Other Ur Culture Indicated? Urine Glucose 08/22/18 08/22/18 08/22/18 09:47 11:17 11:56 WBC RBC Hgb Hct MCV MCH MCHC RDW Plt Count MPV Immature Gran % Neutrophils % Lymphocytes % Monocytes % Eosinophils % Basophils % Absolute Neutrophils Band Neutrophils Absolute Lymphocytes Absolute Monocytes Absolute Eosinophils Absolute Basophils Nucleated RBCs Differential Comment Atypical Lymphocytes RBC Morphology Anisocytosis Macrocytosis D-Dimer 1348 H Sodium Potassium Chloride Carbon Dioxide Anion Gap BUN Creatinine Estimated GFR/1.73 m2 Glucose Lactate 4.2 H Calcium Magnesium Total Bilirubin Conjugated Bilirubin AST ALT Alkaline Phosphatase Troponin I NT-Pro-B Natriuret Pep Total Protein Albumin Urine Color Yellow Urine Clarity Clear Urine pH 5.5 Ur Specific [place] 1.015 Urine Protein 100 H Urine Ketones Negative Urine Blood Trace-lysed H Urine Nitrite Negative Urine Bilirubin Negative Urine Urobilinogen 0.2 Ur Leukocyte Esterase Negative Urine RBC 0-2 Urine WBC Negative Ur Epithelial Cells Many Urine Crystals Moderate amorphous Urine Bacteria Rare Urine Casts Negative Urine Mucus Negative Urine Other Moderate renal Ur Culture Indicated? No Urine Glucose Negative 08/22/18 16:00 WBC RBC Hgb Hct MCV MCH MCHC RDW Plt Count MPV Immature Gran % Neutrophils % Lymphocytes % Monocytes % Eosinophils % Basophils % Absolute Neutrophils Band Neutrophils Absolute Lymphocytes Absolute Monocytes Absolute Eosinophils Absolute Basophils Nucleated RBCs Differential Comment Atypical Lymphocytes RBC Morphology Anisocytosis Macrocytosis D-Dimer Sodium Potassium Chloride Carbon Dioxide Anion Gap BUN Creatinine Estimated GFR/1.73 m2 Glucose Lactate 3.1 H Calcium Magnesium Total Bilirubin Conjugated Bilirubin AST ALT Alkaline Phosphatase Troponin I NT-Pro-B Natriuret Pep Total Protein Albumin Urine Color Urine Clarity Urine pH Ur Specific [place] Urine Protein Urine Ketones Urine Blood Urine Nitrite Urine Bilirubin Urine Urobilinogen Ur Leukocyte Esterase Urine RBC Urine WBC Ur Epithelial Cells Urine Crystals Urine Bacteria Urine Casts Urine Mucus Urine Other Ur Culture Indicated? Urine Glucose
[2018-08-22] MEDS: Apixaban 5 MG TAB PO (19:40)
[2018-08-22] MEDS: Potassium Chloride 20 MEQ TABCR PO (19:40)
[2018-08-22] MEDS: Sucralfate 1 GM TAB PO (19:40)
[2018-08-22] MEDS: Furosemide 40 MG TAB PO (19:41)
[2018-08-22] MEDS: Acyclovir 400 MG TAB PO (19:41)
[2018-08-22] MEDS: Nystatin POWDER 15 GM JAR TP (19:41)
[2018-08-23] VITALS (8 sets, daily range): BP systolic 124–137; BP diastolic 63–87; PULSE 74–100; RESP 18–24; TEMP 36.2–37; O2SAT 93–99
[2018-08-23] MEDS: Normal Saline Flush 10 ML SYR IVP ×4 (01:53→21:44)
[2018-08-23] MEDS: PIPERACILLIN/TAZO 3.375 GM in Normal Saline 50 ML IVPB ×3 (01:56→17:20)
[2018-08-23] MEDS: VANCOMYCIN 500 MG in Normal Saline 100 ML 100 MG IVPB (04:03)
--- NOTE | 2018-08-23 06:59 | PDOC.CMIN ---
- If Service Date Differs Date of service: 08/23/18 Time of Service: 06:59 Care Management Initial Assess REASON FOR HOSPITALIZATION:: CHF Exacerbation, HCAP. PAST MEDICAL HISTORY/PAST SURGICAL HISTORY:: A-fib, multiple myeloma, GERD, DVT, hypertension. Surgical hx: cholecystectomy, hysterectomy, ligation of fallopian tube, oophrectomy. PREVIOUS FUNCTIONAL STATUS/SOCIAL/FAMILY SUPPORTS:: Concepción resides in her own home in [place] with her , Anoop. She has 7 children; one of whom lives locally and two live in [place]. She and her have a granddaughter, Kathleen Prieto ([phone]) who lives next door and care for them during the day. Concepción reports that she needs assistance with house chores, meals and bathing. She owns a walker and a cane but does not use them. Concepción reportedly drives, as does Anoop, but according to Concepción, Kathleen does much of the driving for the family. Concepción lives on the first floor of her home and had a bedroom and bathroom put in several years ago. Concepción reports that she needs assistance with heating and that [employer] or [employer] (she is unsure) is working with her on getting aid. CURRENT FUNCTIONAL STATUS:: Concepción is lying in bed when CM visits this morning. She is engaged in conversation, makes good eye contact and is talkative. Concepción reports that she is feeling ok today. Her blood cultures are pending and she is receiving 2 L of supplemental O2 via [place] at this time. ADVANCE DIRECTIVES:: None on file at [facility]. Has patient been provided with information about the portal?: Yes Did the patient sign up for the portal?: No CODE STATUS:: Full Code INSURANCE COVERAGE / FINANCIAL ISSUES:: Medicare. CURRENT HOME/COMMUNITY SERVICES/EQUIPMENT:: One of the community assistance organizations is working with Concepción on heating assistance. CM will follow up on Friday. Concepción has a walk in bath, grab bars in the bathroom and a hospital type bed. PRIMARY CARE PHYSICIAN:: Wilbert Hardwick. POTENTIAL DISCHARGE NEEDS:: Follow up appointment with PCP. PATIENT/FAMILY EDUCATION NEEDS:: Discharge education, any limitations, and follow up plan of care. Ask Me Three discussion. ANTICIPATED BARRIERS TO DISCHARGE:: No anticipated barriers to discharge. TRANSPORTATION:: Concepción will transport via private vehicle with her granddaughter, Kathleen Prieto. PLAN:: Concepción will discharge when medically ready per MD. Anticipate patient will discharge with no services and follow up with her PCP. CM will continue to offer support regarding ongoing discharge planning and disposition.
--- NOTE | 2018-08-23 07:03 | INITIAL_ITS ---
- If Service Date Differs Date of service: 08/23/18 Time of Service: 06:59 Care Management Initial Assess REASON FOR HOSPITALIZATION:: CHF Exacerbation, HCAP. PAST MEDICAL HISTORY/PAST SURGICAL HISTORY:: A-fib, multiple myeloma, GERD, DVT , hypertension. Surgical hx: cholecystectomy, hysterectomy, ligation of fallopian tube, oophrectomy. PREVIOUS FUNCTIONAL STATUS/SOCIAL/FAMILY SUPPORTS:: Concepción resides in her own home in [place] with her , Anoop. She has 7 children; one of whom lives locally and two live in [place]. She and her have a granddaughter, Kathleen Prieto ([phone]) who lives next door and care for them during the day. Concepción reports that she needs assistance with house chores, meals and bathing. She owns a walker and a cane but does not use them. Concepción reportedly drives, as does Anoop, but according to Concepción, Kathleen does much of the driving for the family. Concepción lives on the first floor of her home and had a bedroom and bathroom put in several years ago. Concepción reports that she needs assistance with heating and that [employer] or [employer] (she is unsure) is working with her on getting aid. CURRENT FUNCTIONAL STATUS:: Concepción is lying in bed when CM visits this morning. She is engaged in conversation, makes good eye contact and is talkative. Concepción reports that she is feeling ok today. Her blood cultures are pending and she is receiving 2 L of supplemental O2 via [place] at this time. ADVANCE DIRECTIVES:: None on file at [facility]. Has patient been provided with information about the portal?: Yes Did the patient sign up for the portal?: No CODE STATUS:: Full Code INSURANCE COVERAGE / FINANCIAL ISSUES:: Medicare. CURRENT HOME/COMMUNITY SERVICES/EQUIPMENT:: One of the community assistance organizations is working with Concepción on heating assistance. CM will follow up on Friday. Concepción has a walk in bath, grab bars in the bathroom and a hospital type bed. PRIMARY CARE PHYSICIAN:: Wilbert Hardwick. POTENTIAL DISCHARGE NEEDS:: Follow up appointment with PCP. PATIENT/FAMILY EDUCATION NEEDS:: Discharge education, any limitations, and follow up plan of care. Ask Me Three discussion. ANTICIPATED BARRIERS TO DISCHARGE:: No anticipated barriers to discharge. TRANSPORTATION:: Concepción will transport via private vehicle with her granddaughter, Kathleen Prieto. PLAN:: Concepción will discharge when medically ready per MD. Anticipate patient will discharge with no services and follow up with her PCP. CM will continue to offer support regarding ongoing discharge planning and disposition.
[2018-08-23 07:40] LABS: Abs Immature Grans 0.14 k/cumm (0.0-0.09); HCT 27.7 % (36.0-46.0); HGB 8.8 g/dL (12.0-15.5); Mean Corp. HGB Concentration 31.8 g/dL (32.0-36.0); Mean Corpuscular Hemoglobin 34.4 pg (27.0-33.0); Mean Corpuscular Volume 108.2 fL (80-95); Mean Platelet Volume 8.9 fL (8.0-11.0); RBC 2.56 m/cumm (4.00-5.20); RBC Distribution Width 18.3 % (11.7-14.6); White Blood Cell Count 3.48 k/cumm (4.4-10.8)
[2018-08-23 08:00] LABS: ALT 33 U/L (12-78); AST 15 U/L (15-37); Albumin 2.1 g/dL (3.4-5.0); Alkaline Phosphatase 98 U/L (46-116); Anion Gap 9.1 mmol/L (3-11); BUN 33 mg/dL (7-18); Bilirubin, Total 0.6 mg/dL (0.2-1.0); CO2 23.9 mmol/L (21.0-32.0); CREATININE 1.41 mg/dL (0.55-1.02); Calcium 9.5 mg/dL (8.5-10.1); Chloride 105 mmol/L (98-107); Estimated GFR 36.56 (mL/min/1.73m2); Glucose 116 mg/dL (70-100); Potassium 4.1 mmol/L (3.5-5.1); Sodium 138 mmol/L (136-145); Total Protein 7.5 g/dL (6.4-8.2)
[2018-08-23 08:11] LABS: Absolute Lymphocyte Count 0.42 k/cumm (1.2-3.4); Absolute Monocyte Count 0.28 k/cumm (0.11-0.7); Absolute Neutrophil Count 2.71 k/cumm (1.2-6.7)
[2018-08-23 08:12] LABS: Anisocytosis 2+; Basophilic Stippling Present; Diff Comment Manual Differential; Macrocytosis 2+; Nucleated RBC 8 /100WBC
[2018-08-23 08:13] LABS: Platelet Count 135 x1000/uL (130-400); Polychromasia Present
[2018-08-23] MEDS: Apixaban 5 MG TAB PO ×2 (09:03→21:44)
[2018-08-23] MEDS: Omeprazole 20 MG CAPCR 40 MG PO (09:03)
[2018-08-23] MEDS: Metoprolol CR 100 MG TABCR PO (09:04)
[2018-08-23] MEDS: Furosemide 40 MG TAB PO ×2 (09:04→21:44)
[2018-08-23] MEDS: Dexamethasone 1 MG TAB 0.5 MG PO (09:04)
[2018-08-23] MEDS: Potassium Chloride 20 MEQ TABCR PO ×2 (09:04→21:44)
[2018-08-23] MEDS: Sucralfate 1 GM TAB PO ×2 (09:04→21:44)
[2018-08-23] MEDS: Acyclovir 400 MG TAB PO ×2 (09:05→21:44)
[2018-08-23] MEDS: Nystatin POWDER 15 GM JAR TP ×2 (09:06→23:51)
--- NOTE | 2018-08-23 18:28 | PGE_ITS ---
Assessment and Plan (1) Left lower lobe pneumonia: Current visit: Yes Status: Acute She has been on vancomycin and Zosyn for presumed left lower lobe pneumonia. She has no fever no white count. Will DC the vancomycin, stop the Zosyn after tonight's dose and switch to Augmentin 875 p.o. twice daily for 7 more days. (2) Multiple myeloma: Current visit: Yes Status: Chronic She is on active chemotherapy for her multiple myeloma. I suspect this is the partial cause for some of her diarrhea and overall weakness. She is hydrated up nicely, her appetite is back. Continue mobilization with anticipated discharge tomorrow if her strength is present. (3) Atrial fibrillation: Current visit: Yes Status: Chronic Vital signs are stable, heart rate well controlled. Continue present meds (4) CHF (congestive heart failure): Current visit: No Status: Chronic Her overall dyspnea is improved. Fluid status appears to be good. Continue on Lasix 40 twice daily as prior (5) Diabetes: Current visit: Yes Status: Suspected Fingerstick blood sugars have been normal. Patient does not believe she is even a diabetic. Will DC fingersticks. Subjective Interval history since last seen: She is overall feeling quite a bit better. She describes less problems with her breathing. Appetite is good. She has had no chest pain. Still remains quite weak. Exam Narrative Exam Narrative: On exam she is quite pleasant and fully coherent. Her lung exam sounds relatively clear and dry on the right and left. Her heart sounds are somewhat distant but no significant murmur abdomen is quite massively obese but nontender the lower extremities no significant edema. Neurologically she overall does show some evidence of weakness but no focal neurologic deficits are present. Objective Objective Clinical Data: Abnormal lab results 08/23/18 08/23/18 Range/Units 07:00 07:00 WBC 3.48 L (4.4-10.8) k/cumm RBC 2.56 L (4.00-5.20) m/cumm Hgb 8.8 L (12.0-15.5) g/dL Hct 27.7 L (36.0-46.0) % MCV 108.2 H (80-95) fL MCH 34.4 H (27.0-33.0) pg MCHC 31.8 L (32.0-36.0) g/dL RDW 18.3 H (11.7-14.6) % Absolute Lymphocytes 0.42 L (1.2-3.4) k/cumm BUN 33 H D (7-18) mg/dL Creatinine 1.41 H (0.55-1.02) mg/dL Glucose 116 H D (70-100) mg/dL Albumin 2.1 L (3.4-5.0) g/dL Vital Signs Temperature 37.0 C 08/23/18 15:30 Temperature Source Tympanic 08/23/18 15:30 Pulse 100 H 08/23/18 15:51 Pulse Rhythm Irregular 08/23/18 10:00 Respiratory Rate 18 08/23/18 15:30 Respiratory Effort 08/23/18 10:00 Respiratory Depth Normal 08/23/18 10:00 Respiratory Pattern Normal 08/23/18 10:00 Blood Pressure 134/76 08/23/18 15:30 Pulse Oximetry 96 08/23/18 15:30 Oxygen Delivery Method Room Air 08/23/18 15:30 Oxygen Flow Rate 0 08/23/18 15:30 Pain Level 0 08/23/18 12:19 Comment 08/22/18 17:45 Intake & Output 08/22/18 08/23/18 08/23/18 23:59 11:59 23:59 Intake Total 690.000 / 690.000 520 / 520 50 / 50 Output Total 1200 / 1200 550 / 550 300 / 300 Balance -510.000 / -510.000 -30 / -30 -250 / -250 Weight 43.091 kg Intake: IV 450.000 / 450.000 150 / 150 50 / 50 Oral 240 / 240 370 / 370 Output: Urine 1200 / 1200 550 / 550 300 / 300 Other: Urine Color Pale Pale Yellow Yellow Yellow Urine Appearance Clear Clear Clear Urine Odor Strong None Normal Stool Size Moderate Stool Characteristics Soft Liquid Voiding Methods Bedside Commode Bedside Commode Bedside Commode Laboratory Results WBC 3.48 k/cumm (4.4-10.8) L 08/23/18 07:00 RBC 2.56 m/cumm (4.00-5.20) L 08/23/18 07:00 Hgb 8.8 g/dL (12.0-15.5) L 08/23/18 07:00 Hct 27.7 % (36.0-46.0) L 08/23/18 07:00 MCV 108.2 fL (80-95) H 08/23/18 07:00 MCH 34.4 pg (27.0-33.0) H 08/23/18 07:00 MCHC 31.8 g/dL (32.0-36.0) L 08/23/18 07:00 RDW 18.3 % (11.7-14.6) H 08/23/18 07:00 Plt Count 135 x1000/uL (130-400) 08/23/18 07:00 MPV 8.9 fL (8.0-11.0) 08/23/18 07:00 Immature Gran % See Differential 08/23/18 07:00 Neutrophils % 74.0 08/23/18 07:00 Lymphocytes % 12.0 08/23/18 07:00 Monocytes % 8.0 08/23/18 07:00 Eosinophils % 0.0 08/23/18 07:00 Basophils % 0.0 08/23/18 07:00 Absolute Neutrophils 2.71 k/cumm (1.2-6.7) 08/23/18 07:00 Band Neutrophils 4.0 % 08/23/18 07:00 Absolute Lymphocytes 0.42 k/cumm (1.2-3.4) L 08/23/18 07:00 Absolute Monocytes 0.28 k/cumm (0.11-0.7) 08/23/18 07:00 Absolute Eosinophils 0.00 k/cumm (0.0-0.7) 08/23/18 07:00 Absolute Basophils 0.00 k/cumm (0.0-0.2) 08/23/18 07:00 Metamyelocytes 2.0 % 08/23/18 07:00 Nucleated RBCs 8 /100WBC 08/23/18 07:00 Differential Comment Manual differential 08/23/18 07:00 Atypical Lymphocytes 5 08/22/18 09:47 RBC Morphology See below 08/23/18 07:00 Polychromasia Present 08/23/18 07:00 Basophilic Stippling Present 08/23/18 07:00 Anisocytosis 2+ 08/23/18 07:00 Macrocytosis 2+ 08/23/18 07:00 D-Dimer 1348 ng/mlFEU (<500) H 09/29/18 09:47 Sodium 138 mmol/L (136-145) 08/23/18 07:00 Potassium 4.1 mmol/L (3.5-5.1) 08/23/18 07:00 Chloride 105 mmol/L (98-107) 08/23/18 07:00 Carbon Dioxide 23.9 mmol/L (21.0-32.0) 08/23/18 07:00 Anion Gap 9.1 mmol/L (3-11) 08/23/18 07:00 BUN 33 mg/dL (7-18) H D 08/23/18 07:00 Creatinine 1.41 mg/dL (0.55-1.02) H 08/23/18 07:00 Estimated GFR/1.73 m2 36.56 (mL/min/1.73m2) 08/23/18 07:00 Glucose 116 mg/dL (70-100) H D 08/23/18 07:00 Lactate 3.1 mmol/L (0.6-1.4) H 08/22/18 16:00 Calcium 9.5 mg/dL (8.5-10.1) 08/23/18 07:00 Magnesium 1.7 mg/dL (1.8-2.4) L 08/22/18 09:47 Total Bilirubin 0.6 mg/dL (0.2-1.0) 08/23/18 07:00 Conjugated Bilirubin 0.15 mg/dL (0.00-0.20) 08/22/18 09:47 AST 15 U/L (15-37) 08/23/18 07:00 ALT 33 U/L (12-78) 08/23/18 07:00 Alkaline Phosphatase 98 U/L (46-116) 08/23/18 07:00 Troponin I < 0.02 ng/mL (0.00-0.06) 08/22/18 09:47 NT-Pro-B Natriuret Pep 10098 pg/mL (-299) H 08/22/18 09:47 Total Protein 7.5 g/dL (6.4-8.2) 08/23/18 07:00 Albumin 2.1 g/dL (3.4-5.0) L 08/23/18 07:00 Urine Color Yellow (Yellow) 08/22/18 11:17 Urine Clarity Clear 08/22/18 11:17 Urine pH 5.5 (5-8) 08/22/18 11:17 Ur Specific [place] 1.015 (1.005-1.025) 08/22/18 11:17 Urine Protein 100 mg/dL (Negative) H 08/22/18 11:17 Urine Ketones Negative mg/dL (Negative) 08/22/18 11:17 Urine Blood Trace-lysed (Negative) H 08/22/18 11:17 Urine Nitrite Negative (Negative) 08/22/18 11:17 Urine Bilirubin Negative (Negative) 08/22/18 11:17 Urine Urobilinogen 0.2 EU/dL (Up TO 0.2) 08/22/18 11:17 Ur Leukocyte Esterase Negative (Negative) 08/22/18 11:17 Urine RBC 0-2 (0-2) 08/22/18 11:17 Urine WBC Negative HPF (0-5) 08/22/18 11:17 Ur Epithelial Cells Many HPF (Negative) 08/22/18 11:17 Urine Crystals Moderate amorphous HPF (Negative) 08/22/18 11:17 Urine Bacteria Rare HPF (Negative) 08/22/18 11:17 Urine Casts Negative LPF (Negative) 08/22/18 11:17 Urine Mucus Negative (Negative) 08/22/18 11:17 Urine Other Moderate renal (Negative) 08/22/18 11:17 Ur Culture Indicated? No 08/22/18 11:17 Urine Glucose Negative mg/dL (Negative) 08/22/18 11:17
[2018-08-24 00:17] VITALS: BP 143/85; PULSE 99; RESP 16; TEMP 36.5; O2SAT 93
[2018-08-24 04:20] VITALS: BP 154/84; PULSE 103; RESP 17; TEMP 36.3; O2SAT 95
[2018-08-24 07:20] VITALS: BP 155/83; PULSE 109; RESP 18; TEMP 36.4; O2SAT 96
[2018-08-24] MEDS: Omeprazole 20 MG CAPCR 40 MG PO (07:34)
[2018-08-24 07:58] LABS: HCT 27.6 % (36.0-46.0); HGB 8.5 g/dL (12.0-15.5); Mean Corp. HGB Concentration 30.8 g/dL (32.0-36.0); Mean Corpuscular Hemoglobin 33.6 pg (27.0-33.0); Mean Corpuscular Volume 109.1 fL (80-95); Mean Platelet Volume 9.3 fL (8.0-11.0); Platelet Count 100 x1000/uL (130-400); RBC 2.53 m/cumm (4.00-5.20); RBC Distribution Width 17.9 % (11.7-14.6); White Blood Cell Count 4.19 k/cumm (4.4-10.8)
[2018-08-24 08:03] LABS: Anion Gap 6.6 mmol/L (3-11); BUN 26 mg/dL (7-18); CO2 28.4 mmol/L (21.0-32.0); CREATININE 1.28 mg/dL (0.55-1.02); Calcium 9.8 mg/dL (8.5-10.1); Chloride 105 mmol/L (98-107); Estimated GFR 40.88 (mL/min/1.73m2); Glucose 123 mg/dL (70-100); Potassium 3.6 mmol/L (3.5-5.1); Sodium 140 mmol/L (136-145)
[2018-08-24 08:25] LABS: Absolute Basophil Count 0.04 k/cumm (0.0-0.2); Absolute Eosinophil Count 0.13 k/cumm (0.0-0.7); Absolute Lymphocyte Count 0.34 k/cumm (1.2-3.4); Absolute Monocyte Count 0.46 k/cumm (0.11-0.7); Absolute Neutrophil Count 3.02 k/cumm (1.2-6.7)
[2018-08-24 08:26] LABS: Anisocytosis 1+; Basophilic Stippling Present; Hypochromasia 1+; Macrocytosis 2+; Microcytosis 1+; Nucleated RBC 3 /100WBC
[2018-08-24] MEDS: Apixaban 5 MG TAB PO (08:42)
[2018-08-24] MEDS: Metoprolol CR 100 MG TABCR PO (08:42)
[2018-08-24] MEDS: Furosemide 40 MG TAB PO (08:42)
[2018-08-24] MEDS: Acyclovir 400 MG TAB PO (08:42)
[2018-08-24] MEDS: Potassium Chloride 20 MEQ TABCR PO (08:42)
[2018-08-24] MEDS: Amoxicillin 875/Clav. 125 TAB PO (08:42)
[2018-08-24] MEDS: Nystatin POWDER 15 GM JAR TP (08:43)
[2018-08-24] MEDS: Dexamethasone 1 MG TAB 0.5 MG PO (08:43)
[2018-08-24] MEDS: Sucralfate 1 GM TAB PO (08:54)
[2018-08-24 09:11] LABS: Diff Comment Manual Differential
--- NOTE | 2018-08-24 09:43 | PDOC.CMDIS ---
- If Service Date Differs Date of service: 08/24/18 Time of Service: 09:43 LACE Index Scoring Tool - Questions: Length of Stay (in days): 3 Acuity (Admit via E.D.?): Yes E.D. Visits: 6 - Answers: Total Score: 10 Risk of Readmission: High Risk Care Management Discharge Reason for Hospitalization: CHF Exacerbation, HCAP. Discharge Plan: Concepción will return home today. JAMES spoke with Concepción regarding home health services, and she feels as though she is not in need of these services as her granddaughter Kathleen helps her and her throughout the day. Concepción states that she is leaving today at 1100. JAMES spoke with Kathleen, Granddaughter, whom will transport when Concepción is ready. Patient/Family Education Needs: Review DC instructions, any limitations, and discuss Ask Me Three
[2018-08-24 11:25] VITALS: BP 147/89; PULSE 80; RESP 20; TEMP 36; O2SAT 94
[2018-08-24] MEDS: Heparin 500 UNITS/5 ML SYRINGE IVP (12:05)
--- NOTE | 2018-08-24 18:30 | W.PM.DS.N ---
Date of service: 08/24/18 Time of Service: 18:30 DS: Diagnosis Discharge Diagnosis (1) Left lower lobe pneumonia: Status: Acute Asessment and Plan: Patient was admitted acutely for left lower lobe pneumonia. She was treated with vancomycin and Zosyn as empiric therapy. She is transition to oral Augmentin to complete a 7-day course. (2) Multiple myeloma: Status: Chronic Asessment and Plan: Patient has advanced multiple myeloma now getting chemotherapy 2 days/week. Plan is for to follow-up with Dr. Vergara later this week. (3) Atrial fibrillation: Status: Chronic Asessment and Plan: Continue present meds. (4) CHF (congestive heart failure): Status: Chronic Asessment and Plan: Patient responded well to 1 dose of IV Lasix and was then maintained on her usual dose of 40 mg p.o. twice daily. Appears to be euvolemic at the time of discharge satting 96% on room air. (5) Diabetes: Status: Suspected Asessment and Plan: But sugars were well-controlled during this visit continue present meds. Discharge Plan Disposition Patient Disposition: HOME Condition: Improving Discharge Details Reason For Visit: CHF,HCAP,H/O MULTIPLE MYELOMA Admit Date/Time: 08/22/18 12:03 Admit Provider: Jadon Jain Attending Provider: Jadon Jain Primary Care Provider: [facility] Course Hospital Course: 73-year-old woman admitted acutely because of worsening shortness of breath and weakness. She had had chemotherapy on Friday and of the previous week and was admitted on Friday for above mentioned symptoms. She received empiric therapy for a healthcare acquired pneumonia. She received IV Lasix followed by oral Lasix to treat what may have been some fluid overload. Overall her weakness improved with rest and supportive care. Her vital signs and blood counts stabilized. She is discharged home with plans to return for further follow-up in the hematology clinic. Home Meds and New Rx's Prescriptions: New amoxicillin-pot clavulanate 875-125 mg Tablet 1 tab PO BID Qty: 10 RF: 0 Continue metoprolol succinate 100 mg tablet extended release 24 hr 100 mg PO DAILY RF: 0 omeprazole 40 mg capsule,delayed release(DR/EC) 40 mg PO DAILY RF: 0 nystatin 100,000 unit/gram powder 1 applic TP TID RF: 0 furosemide 40 mg tablet 40 mg PO BID RF: 0 sucralfate 1 gram tablet 1 gm PO BID RF: 0 diphenoxylate-atropine 2.5-0.025 mg tablet 1 tab PO Q6H PRNRF: 0 albuterol sulfate [Proventil HFA] 90 mcg/actuation HFA aerosol inhaler 2 puff IH Q6H PRNRF: 0 dexamethasone 0.5 mg tablet 0.5 mg PO DAILY RF: 0 apixaban [Eliquis] 5 mg tablet 5 mg PO BID RF: 0 acyclovir 400 mg tablet 400 mg PO BID Qty: 180 RF: 4 arm brace [CONCEPCIÓN Elbow Brace] 1 EACH misc 1 ea Miscellaneous DAILY Qty: 1 RF: 0 hydrocortisone [Anusol-HC] 30 GM cream with perineal applicator RC BID Qty: 30 RF: 2 potassium chloride 20 mEq tablet extended release 20 meq PO BID Qty: 180 RF: 4 nystatin 60 GM powder 1 applic Topical TID Qty: 1 RF: 0 Discharge Instructions Instructions: Hospital Acquired Pneumonia (DC) Stand Alone Forms: Nursing Discharge Form Referrals: Wilbert Hardwick MD [Primary Care Provider] - (The office giselle call you with an appointment date and time.) Activity:: Activity as Tolerated Equipment/Supplies:: No Equipment Needed Diet:: As Tolerated Discharge Orders Discharge Orders: Discharge Order (Routine); Ordered 08/24/18 Ordered By: Jadon Jain Discharge Data Discharge Date/Time-TO BE ENTERED AT DEPARTURE: 08/24/18 12:15 Exam Narrative Exam Narrative: Patient was feeling better at the time of discharge. Her lung exam was clear and dry on the right and left heart sounds were regular abdomen quite massively obese but soft and nontender. Lower extremities no significant edema. DS: Data Vitals/I&O Vitals and I&O: Vital Signs Temperature 36 C L 08/24/18 11:25 Temperature Source Tympanic 08/24/18 11:25 Pulse 80 08/24/18 11:25 Pulse Rhythm Irregular 08/24/18 07:46 Respiratory Rate 20 08/24/18 11:25 Respiratory Effort 08/24/18 07:46 Respiratory Depth Shallow 08/24/18 07:46 Respiratory Pattern Normal 08/24/18 07:46 Blood Pressure 147/89 H 08/24/18 11:25 Pulse Oximetry 94 L 08/24/18 11:25 Oxygen Delivery Method Room Air 08/24/18 11:25 Oxygen Flow Rate 0 08/24/18 11:25 Pain Level 0 08/23/18 12:19 Comment 08/24/18 04:20 Intake & Output 08/23/18 08/24/18 08/24/18 23:59 11:59 23:59 Intake Total 340 / 340 250 / 250 Output Total 750 / 750 1350 / 1350 Balance -410 / -410 -1100 / -1100 Weight 94.9 kg Intake: IV 100 / 100 Oral 240 / 240 250 / 250 Output: Urine 750 / 750 1350 / 1350 Other: Urine Color Yellow Yellow Urine Appearance Clear Clear Urine Odor Normal Stool Size Moderate Moderate Stool Characteristics Soft Soft Liquid Liquid Voiding Methods Toilet Toilet Pending studies at discharge: Introduction of Other Therapeutic Substance into Respiratory Tract, Via Natural or Artificial Opening (11/22/17) Irrigation of vascular catheter (08/30/13) OP RED-INT FIX TIB/FIBUL (03/04/99) Other oxygen enrichment (11/25/14) PROSTHET/ORTHOT TRAINING (03/04/99) WBC 4.19 k/cumm (4.4-10.8) L 08/24/18 07:05 RBC 2.53 m/cumm (4.00-5.20) L 08/24/18 07:05 Hgb 8.5 g/dL (12.0-15.5) L 08/24/18 07:05 Hct 27.6 % (36.0-46.0) L 08/24/18 07:05 MCV 109.1 fL (80-95) H 08/24/18 07:05 MCH 33.6 pg (27.0-33.0) H 08/24/18 07:05 MCHC 30.8 g/dL (32.0-36.0) L 08/24/18 07:05 RDW 17.9 % (11.7-14.6) H 08/24/18 07:05 Plt Count 100 x1000/uL (130-400) L 08/24/18 07:05 MPV 9.3 fL (8.0-11.0) 08/24/18 07:05 Immature Gran % See Differential 08/24/18 07:05 Neutrophils % 68.0 08/24/18 07:05 Lymphocytes % 8.0 08/24/18 07:05 Monocytes % 11.0 08/24/18 07:05 Eosinophils % 3.0 08/24/18 07:05 Basophils % 1.0 08/24/18 07:05 Absolute Neutrophils 3.02 k/cumm (1.2-6.7) 08/24/18 07:05 Band Neutrophils 4.0 % 08/24/18 07:05 Absolute Lymphocytes 0.34 k/cumm (1.2-3.4) L 08/24/18 07:05 Absolute Monocytes 0.46 k/cumm (0.11-0.7) 08/24/18 07:05 Absolute Eosinophils 0.13 k/cumm (0.0-0.7) 08/24/18 07:05 Absolute Basophils 0.04 k/cumm (0.0-0.2) 08/24/18 07:05 Metamyelocytes 3.0 % 08/24/18 07:05 Myelocytes 2.0 % 08/24/18 07:05 Nucleated RBCs 3 /100WBC 08/24/18 07:05 Differential Comment Manual differential 08/24/18 07:05 Atypical Lymphocytes 5 08/22/18 09:47 RBC Morphology See below 08/24/18 07:05 Polychromasia Present 08/23/18 07:00 Hypochromasia 1+ 08/24/18 07:05 Basophilic Stippling Present 08/24/18 07:05 Anisocytosis 1+ 08/24/18 07:05 Microcytosis 1+ 08/24/18 07:05 Macrocytosis 2+ 08/24/18 07:05 D-Dimer 1348 ng/mlFEU (<500) H 08/22/18 09:47 Sodium 140 mmol/L (136-145) 08/24/18 07:05 Potassium 3.6 mmol/L (3.5-5.1) 08/24/18 07:05 Chloride 105 mmol/L (98-107) 08/24/18 07:05 Carbon Dioxide 28.4 mmol/L (21.0-32.0) 08/24/18 07:05 Anion Gap 6.6 mmol/L (3-11) 08/24/18 07:05 BUN 26 mg/dL (7-18) H 08/24/18 07:05 Creatinine 1.28 mg/dL (0.55-1.02) H 08/24/18 07:05 Estimated GFR/1.73 m2 40.88 (mL/min/1.73m2) 08/24/18 07:05 Glucose 123 mg/dL (70-100) H 08/24/18 07:05 Lactate 3.1 mmol/L (0.6-1.4) H 08/22/18 16:00 Calcium 9.8 mg/dL (8.5-10.1) 08/24/18 07:05 Magnesium 1.7 mg/dL (1.8-2.4) L 08/22/18 09:47 Total Bilirubin 0.6 mg/dL (0.2-1.0) 08/23/18 07:00 Conjugated Bilirubin 0.15 mg/dL (0.00-0.20) 08/22/18 09:47 AST 15 U/L (15-37) 08/23/18 07:00 ALT 33 U/L (12-78) 08/23/18 07:00 Alkaline Phosphatase 98 U/L (46-116) 08/23/18 07:00 Troponin I < 0.02 ng/mL (0.00-0.06) 08/22/18 09:47 NT-Pro-B Natriuret Pep 55195 pg/mL (-299) H 08/22/18 09:47 Total Protein 7.5 g/dL (6.4-8.2) 08/23/18 07:00 Albumin 2.1 g/dL (3.4-5.0) L 08/23/18 07:00 Urine Color Yellow (Yellow) 08/22/18 11:17 Urine Clarity Clear 08/22/18 11:17 Urine pH 5.5 (5-8) 08/22/18 11:17 Ur Specific [place] 1.015 (1.005-1.025) 08/22/18 11:17 Urine Protein 100 mg/dL (Negative) H 08/22/18 11:17 Urine Ketones Negative mg/dL (Negative) 08/22/18 11:17 Urine Blood Trace-lysed (Negative) H 08/22/18 11:17 Urine Nitrite Negative (Negative) 08/22/18 11:17 Urine Bilirubin Negative (Negative) 08/22/18 11:17 Urine Urobilinogen 0.2 EU/dL (Up TO 0.2) 08/22/18 11:17 Ur Leukocyte Esterase Negative (Negative) 08/22/18 11:17 Urine RBC 0-2 (0-2) 08/22/18 11:17 Urine WBC Negative HPF (0-5) 08/22/18 11:17 Ur Epithelial Cells Many HPF (Negative) 08/22/18 11:17 Urine Crystals Moderate amorphous HPF (Negative) 08/22/18 11:17 Urine Bacteria Rare HPF (Negative) 08/22/18 11:17 Urine Casts Negative LPF (Negative) 08/22/18 11:17 Urine Mucus Negative (Negative) 08/22/18 11:17 Urine Other Moderate renal (Negative) 08/22/18 11:17 Ur Culture Indicated? No 08/22/18 11:17 Urine Glucose Negative mg/dL (Negative) 08/22/18 11:17 Labs on day of discharge: Labs from last 24 hours 08/24/18 08/24/18 08/24/18 11:30 07:05 07:05 WBC 4.19 L RBC 2.53 L Hgb 8.5 L Hct 27.6 L MCV 109.1 H MCH 33.6 H MCHC 30.8 L RDW 17.9 H Plt Count 100 L MPV 9.3 Immature Gran % See Differential Neutrophils % 68.0 Lymphocytes % 8.0 Monocytes % 11.0 Eosinophils % 3.0 Basophils % 1.0 Absolute Neutrophils 3.02 Band Neutrophils 4.0 Absolute Lymphocytes 0.34 L Absolute Monocytes 0.46 Absolute Eosinophils 0.13 Absolute Basophils 0.04 Metamyelocytes 3.0 Myelocytes 2.0 Nucleated RBCs 3 Differential Comment Manual differential RBC Morphology See below Hypochromasia 1+ Basophilic Stippling Present Anisocytosis 1+ Microcytosis 1+ Macrocytosis 2+ Sodium 140 Potassium 3.6 Chloride 105 Carbon Dioxide 28.4 Anion Gap 6.6 BUN 26 H Creatinine 1.28 H Estimated GFR/1.73 m2 40.88 Glucose 123 H Calcium 9.8 Total Protein (PEP) Pending Albumin % (PEP) Pending [id number] (%) Pending [id number] (%) Pending Beta Globulins (%) Pending Gamma Globulins (%) Pending M-Fidel % Pending PEP Comment Pending IgG Pending IgA Pending IgM Pending Free Branch LC, Quant Pending Free Lambda LC, Quant Pending Free [place]/Lambda Ratio Pending Preliminary micro results at discharge 08/22/18 12:06 Blood Culture - Preliminary Blood NO GROWTH 48 HOURS
[2018-08-25 12:16] LABS: IgA <13 mg/dL (85-499); IgG 2897 mg/dL (610-1616); IgM <12 mg/dL (35-242); Kappa Free Light Chain <0.19 mg/dl (0.33-1.94); Lambda Free Light Chain <0.44 mg/dl (0.57-2.63)
[2018-08-25 14:27] LABS: Monoclonal Spike 36.5 %; Total Protein 6.6 g/dl (6.3-8.2)
== END 2018-08-24 12:15 | disposition home or self-care (01) | DRG 194 ==
LOC: ER 10:44 → MS 08-23 05:00
PROVIDERS: Internal Medicine Hematology & Oncology; Admitting Provider Family Medicine; Emergency Provider Physician Assistant; PCP Family Medicine; Visit Provider Family Medicine
DX: J18.9 Pneumonia, unspecified organism (principal); C90.00 Multiple myeloma not having achieved remission; I50.32 Chronic diastolic (congestive) heart failure; Y95 Nosocomial condition; R09.02 Hypoxemia; E87.70 Fluid overload, unspecified; R19.7 Diarrhea, unspecified; R10.9 Unspecified abdominal pain; Z79.899 Other long term (current) drug therapy; I48.91 Unspecified atrial fibrillation; E11.9 Type 2 diabetes mellitus without complications; K21.9 Gastro-esophageal reflux disease without esophagitis
CPT/HCPCS: 36415; 36591; 80048; 80053; 80076; 82784; 87040; 93005; 96365; 96375; 99223; 99232; 99239; 99285; 71046; 81003; 81015; 83605; 83735; 83880; 83883; 84165; 84484; 85025; 85379; 93010; J1940; J2543; J3475; J3490; J8540

== ENCOUNTER 2018-09-06 18:55 | Emergency (ER) | payer MEDICARE, SELFPAY ==
[2018-09-06 18:51] VITALS: BP 154/82; PULSE 103; RESP 18; TEMP 37.1; O2SAT 94
--- NOTE | 2018-09-06 19:11 | DI.RAD_ITS ---
SYMPTOMS/DIAGNOSIS: RIGHT-SIDED PAIN AFTER A FALL AP AND LATERAL CHEST: The heart is enlarged. Diaphragm is elevated on the right, as noted on previous examinations. Right central venous catheter noted in position. No pleural effusion seen. Linear areas of scarring and/or atelectasis noted on the right. CONCLUSION: No evidence of acute change. No change from 08/22/18.
--- NOTE | 2018-09-06 19:14 | ED.GENADUL_ITS ---
Discharge Plan Disposition Patient Disposition: HOME Condition: Stable Discharge Details Chief Complaint: Chest/Rib Clinical Impression: Contusion of right chest wall Reason For Visit: SAM Primary Care Provider: Wilbert Hardwick ED Provider: Jadon Lieberman Home Meds and New Rx's Prescriptions: Continue metoprolol succinate 100 mg tablet extended release 24 hr 100 mg PO DAILY RF: 0 omeprazole 40 mg capsule,delayed release(DR/EC) 40 mg PO DAILY RF: 0 nystatin 100,000 unit/gram powder 1 applic TP TID RF: 0 furosemide 40 mg tablet 40 mg PO BID RF: 0 sucralfate 1 gram tablet 1 gm PO BID RF: 0 diphenoxylate-atropine 2.5-0.025 mg tablet 1 tab PO Q6H PRNRF: 0 albuterol sulfate [Proventil HFA] 90 mcg/actuation HFA aerosol inhaler 2 puff IH Q6H PRNRF: 0 dexamethasone 0.5 mg tablet 0.5 mg PO DAILY RF: 0 acyclovir 400 mg tablet 400 mg PO BID Qty: 180 RF: 4 arm brace [CONCEPCIÓN Elbow Brace] 1 EACH misc 1 ea Miscellaneous DAILY Qty: 1 RF: 0 hydrocortisone [Anusol-HC] 30 GM cream with perineal applicator RC BID Qty: 30 RF: 2 potassium chloride 20 mEq tablet extended release 20 meq PO BID Qty: 180 RF: 4 nystatin 60 GM powder 1 applic Topical TID Qty: 1 RF: 0 Discharge Instructions Instructions: Contusion in Adults (ED) Discharge Data Discharge Physician: Jadon Lieberman Medical Decision Making 73 yo female with multiple medical problems comes in after a fall. She was backing up with her walker and tripped and hit her right chest. Did not hit her head or have loc. Denies headache, neck pain even on rom and has no tendreness on exam of the neck. She denies any symptoms prior to the fall to suggest acs, arrythmia, syncope, sah, or other etiologies. She has pain with palpation to the right side of her chest without palpable defects, suspect contusion but will xray to eval for fx xray shows no acute findings and she only has pain with palpation to above stated area. She already has pain medication at home and declines any here. HAs f/u already tomorrow with pcp, return precautions given Differential Diagnosis fracture, contusion Imaging Data Radiologic Study: Radiologist's impression: IMPRESSION: 1. Moderate cardiomegaly. No significant vascular congestion for position and projection. 2. Right IJ port with tip at the cavoatrial junction. 3. Subsegmental atelectasis in the right midlung zone with no danyel airspace consolidation HPI General Mode of arrival: EMS . Date/Time Provider Initiated Documentation: 09/06/18 19:04 . Limitations to Documentation: no limitations . Information obtained by: patient . History of Present Illness 73 year old F presents to the emergency department with the chief complaint of right sided chest pain, described as moderate, with intensity rated at 4. Quality is described as aching, and is localized to the chest. Patient reports no radiation. Patient started experiencing this hour(s) (1) and it has been constant. No relieving factors improve symptom(s), No exacerbating factors reported . Patient notes no other symptoms.. Patient did receive the following treatments prior to arrival, other (ems gave fentanyl with relief of pain) Related Data Home Medications Medication Instructions Recorded Confirmed arm brace [CONCEPCIÓN Elbow Brace] #1 ea 02/16/15 nystatin 1 applic TOPICAL TID #1 jar 11/24/17 09/06/18 hydrocortisone [Anusol-HC] 0 RC BID #30 g 07/10/18 potassium chloride ER 20 mEq 20 meq PO BID #180 tab 07/30/18 09/06/18 tablet,extended release acyclovir 400 mg tablet 400 mg PO BID #180 tab 08/04/18 09/06/18 albuterol sulfate HFA 90 2 puff IH Q6H PRN 08/04/18 09/06/18 mcg/actuation aerosol inhaler dexamethasone 0.5 mg tablet 0.5 mg PO DAILY tab 08/04/18 09/06/18 diphenoxylate-atropine 2.5 1 tab PO Q6H PRN tab 08/04/18 09/06/18 mg-0.025 mg tablet furosemide 40 mg tablet 40 mg PO BID 08/04/18 09/06/18 metoprolol succinate ER 100 mg 100 mg PO DAILY 08/04/18 09/06/18 tablet,extended release 24 hr nystatin 100,000 unit/gram topical 1 applic TP TID 08/04/18 09/06/18 powder omeprazole 40 mg capsule,delayed 40 mg PO DAILY 08/04/18 09/06/18 release sucralfate 1 gram tablet 1 gm PO BID tab 08/04/18 09/06/18 Previous Rx's Medication Instructions Recorded nystatin 1 applic TOPICAL TID #1 jar 11/24/17 potassium chloride ER 20 mEq 20 meq PO BID #180 tab 07/30/18 tablet,extended release acyclovir 400 mg tablet 400 mg PO BID #180 tab 08/04/18 Allergies Allergy/AdvReac Type Severity Reaction Status Date / Time adhesive Allergy Unverified 09/06/18 18:57 rosuvastatin calcium AdvReac Dizziness/L Unverified 09/06/18 18:57 [From Crestor] ightheade simvastatin [From Zocor] AdvReac Dizziness/L Unverified 09/06/18 18:57 ightheade General Stated Complaint: Chest/Rib ROSLYN: 3 Review of Systems Review of Systems All systems reviewed & are unremarkable except as noted in HPI and below Constitutional Denies chills, Denies fever(s) and Denies weakness Eyes Denies loss of vision ENT Denies change in voice Cardiovascular Denies dyspnea Respiratory Denies dyspnea Gastrointestinal Denies abdominal pain, Denies nausea and Denies vomiting Genitourinary Denies dysuria Musculoskeletal Denies joint swelling Integumentary/Breasts Denies rash Neurologic Denies loss of vision and Denies weakness Psychiatric Denies depression Endocrine Denies cold intolerance and Denies heat intolerance Allergic/Immunologic Reports urticaria PFSH Family History Sister Neoplasm Brother Myocardial infarction Medical History Left lower lobe pneumonia (Acute) Atrial fibrillation DVT (deep venous thrombosis) Essential hypertension GERD (gastroesophageal reflux disease) Multiple myeloma Social History current occupation: HOUSEWIFE Smoking/Tobacco Use Status: Former Tobacco Use second hand exposure: Yes alcohol intake: never Surgical History Cholecystectomy (07/17/16) Hysterectomy, Laproscopic (~1985) Ligation of fallopian tube Oophrectomy, Both (~1989) Exam Const General: no acute distress Orientation: alert HENID Head: normal to inspection Ears: external ears normal General nose exam: external nose normal Mouth: moist mucous membranes Eyes General: appearance normal, both eyes and all related structures Neck Neck: normal visual inspection Chest Chest: normal inspection of the chest and other (pain with palpation to right mid axillary line over ribs 4-5) Resp Effort & Inspection: normal respiratory effort and able to speak in complete sentences Cardio Rate: regular rate Skin General skin exam: no rashes or lesions noted Neuro General: alert and oriented x3 Extrem General: normal to inspection Psych Mental Status: mental status grossly normal Course Vital Signs Temperature 37.1 C 09/06/18 18:51 Pulse 103 H 09/06/18 18:51 Respiratory Rate 18 09/06/18 18:51 Blood Pressure 154/82 H 09/06/18 18:51 Pulse Oximetry 94 L 09/06/18 18:51 Temperature 37.1 C 09/06/18 18:51 Temperature Source Temporal Artery Scan 09/06/18 18:51 Pulse 103 H 09/06/18 18:51 Respiratory Rate 18 09/06/18 18:51 Respiratory Effort Non-Labored 09/06/18 18:54 Respiratory Depth Normal 09/06/18 18:54 Respiratory Pattern Normal 09/06/18 18:54 Blood Pressure 154/82 H 09/06/18 18:51 Blood Pressure Position Sitting 09/06/18 18:51 Pulse Oximetry 94 L 09/06/18 18:51 Oxygen Delivery Method Room Air 09/06/18 18:51 Oxygen Flow Rate 0 09/06/18 18:51 Pain Level 9 09/06/18 18:54
[2018-09-06 20:06] VITALS: BP 147/74; PULSE 97; RESP 16; TEMP 36.6; O2SAT 94
--- NOTE | 2018-09-06 20:09 | DI.VRAD_ITS ---
EXAM: XR Chest, 2 Views CLINICAL HISTORY: 73 years old, female; Pain; Chest wall pain; Patient HX: Right sided pain after fall TECHNIQUE: Frontal and lateral views of the chest. COMPARISON: CR XR CHEST 2V PA LATERAL 08/22/2018 10:39 AM FINDINGS: Lungs: Subsegmental atelectasis in the right midlung zone with no danyel airspace consolidation. Low lung volumes. Pleural space: No focal pathology. No pneumothorax. Heart: Moderate cardiomegaly. No significant vascular congestion for position and projection. Mediastinum: Unremarkable. Bones/joints: Unremarkable. Tubes, lines and devices: Right IJ port with tip at the cavoatrial junction. Upper abdomen: Right upper quadrant clips, probable cholecystectomy. IMPRESSION: 1. Moderate cardiomegaly. No significant vascular congestion for position and projection. 2. Right IJ port with tip at the cavoatrial junction. 3. Subsegmental atelectasis in the right midlung zone with no danyel airspace consolidation. Dictated and Authenticated by: Ira Dumont MD. Ordering:DESEAN AMIN MD
[2018-09-06] MEDS: Lidocaine 5% Patch 1 PATCH (20:38)
[2018-09-06] MEDS: oxyCODONE 5 MG TAB (20:38)
[2018-09-06 23:55] VITALS: BP 147/74; PULSE 97; RESP 16; TEMP 36.6; O2SAT 94
--- NOTE | 2018-09-08 18:42 | NUR.NOTE ---
Nursing Note:Daughter called stating that she declined pain medication because she had some at home left over from previous problems as cancer pt. Now out and patient is in alot of pain. She was told that we are unable to prescribe without evaluating the patient. She stated she understood and that they would try to come in sometime this evening. Kailee Pompa.
== END 2018-09-06 20:39 | disposition home or self-care (01) ==
LOC: ER 20:46
PROVIDERS: Emergency Provider Emergency Medicine; PCP Family Medicine
DX: S20.211A Contusion of right front wall of thorax, initial encounter (principal); W01.0XXA Fall on same level from slipping, tripping and stumbling without subsequent striking against object, initial encounter; I10 Essential (primary) hypertension; I51.7 Cardiomegaly; J98.11 Atelectasis; Z87.891 Personal history of nicotine dependence
CPT/HCPCS: 99283; 71046

== ENCOUNTER 2018-09-08 20:02 | Emergency (ER) | payer MEDICARE, SELFPAY ==
[2018-09-08 20:33] VITALS: BP 130/90; PULSE 87; RESP 16; TEMP 36.7
--- NOTE | 2018-09-08 21:33 | W.ED.GENAD ---
Discharge Plan Disposition Patient Disposition: HOME Condition: Good Discharge Details Chief Complaint: Recheck Clinical Impression: Right rib fracture Primary Care Provider: Wilbert Hardwick ED Provider: Anoop Jacobs [place] Meds and New Rx's Prescriptions: New lidocaine 5 % adhesive patch,medicated 1 patch TP DAILY Qty: 15 RF: 0 hydrocodone-acetaminophen 5-325 mg tablet 1 tab PO Q6H PRN (Reason: pain) Qty: 10 RF: 0 Continue metoprolol succinate 100 mg tablet extended release 24 hr 100 mg PO DAILY RF: 0 omeprazole 40 mg capsule,delayed release(DR/EC) 40 mg PO DAILY RF: 0 nystatin 100,000 unit/gram powder 1 applic TP TID RF: 0 furosemide 40 mg tablet 40 mg PO BID RF: 0 sucralfate 1 gram tablet 1 gm PO BID RF: 0 diphenoxylate-atropine 2.5-0.025 mg tablet 1 tab PO Q6H PRNRF: 0 albuterol sulfate [Proventil HFA] 90 mcg/actuation HFA aerosol inhaler 2 puff IH Q6H PRNRF: 0 dexamethasone 0.5 mg tablet 0.5 mg PO DAILY RF: 0 acyclovir 400 mg tablet 400 mg PO BID Qty: 180 RF: 4 hydrocortisone [Anusol-HC] 30 GM cream with perineal applicator RC BID Qty: 30 RF: 2 potassium chloride 20 mEq tablet extended release 20 meq PO BID Qty: 180 RF: 4 nystatin 60 GM powder 1 applic Topical TID Qty: 1 RF: 0 No Action arm brace [CONCEPCIÓN Elbow Brace] 1 EACH misc 1 ea Miscellaneous DAILY Qty: 1 RF: 0 Discharge Instructions Instructions: Hydrocodone/Acetaminophen (By mouth), Lidocaine Patch (On the skin), Rib Fracture (ED) Additional Instructions: Do not use Tylenol while taking Vicodin as they both contain acetaminophen. Use the IS 10 times every hour while awake. Follow up with PCP within the week. Discuss CT finding of bladder abnormality and possible referral to urology for work up. Return to ED for fever, cough, trouble breathing, worse pain. Referrals: Wilbert Hardwick MD [Primary Care Provider] - Medical Decision Making Patient with worsening/continued right rib pain s/p fall few days ago. Multiple falls in the last couple of weeks. Large areas of ecchymosis/hematomas on back/flank. Right lower lateral rib tenderness with a little rhonchi in right base. Abdomen seems fine. Will place IV and recheck labs. CT scan to evalute for rib fracture and retroperitoneal hematoma. Low dose fentanyl prn and lidoderm patch for pain here. Patient's labs are ok. Hemoglobin actually better than previous and creatinine stable. Urine is negative blood or infection. CT scan shows atelectasis on right with posterior right 11th rib fracture. Bony lesions noted consistent with history of multiple myeloma. Abnormality of bladder which may be related to underdistension, infection or othe pathology. Patient aware of findings and will discuss with PCP regarding possible referral to urology for cysto. Patient given vicodin after scan. Pain is tolerable. IS reviewed and patient given spirometer to use at home. Discharge on lidoderm and vicodin for home use. VTPMS reviewed, no red flags. Discussed risk and benefits of narcotics. State infomation sheet given and informed consent signed. Follow up with PCP. Return to ED for increase trouble breathing, fever, cough. Medical Records Medical records reviewed: Yes I reviewed the patient's medical records. Lab Data Lab results reviewed: Yes I reviewed the patient's lab results. HPI General Mode of arrival: wheelchair. Date/Time Provider Initiated Documentation: 09/08/18 21:13. Limitations to Documentation: no limitations. Information obtained by: patient, family and old records reviewed. HPI Narrative: Patient presents to ED with continued right sided rib pain s/p fall this weekend. She has had multiple falls over the last couple of weeks. She was seen here Friday after her last fall and had negative chest x-ray. She had Vicodin at home from previous fall and it helped a little but she has run out and she has worse pain. She does not have SOB per se, just hurts to take a breath and pain takes her breath away. She has no cough or fever. She has no extremity pain. She has no headache or neck pain. She has multiple bruises all over her back/arms. She is having trouble even ambulating 10 steps to her bathroom due to pain in the ribs. She was taken of Eliquis about a week ago after one of her falls. She denies black or bloody stool, hematuria or bleeding elsewhere. Related Data Home Medications Medication Instructions Recorded Confirmed arm brace [CONCEPCIÓN Elbow Brace] #1 ea 02/16/15 nystatin 1 applic TOPICAL TID #1 jar 11/24/17 09/08/18 hydrocortisone [Anusol-HC] 0 RC BID #30 g 07/10/18 potassium chloride ER 20 mEq 20 meq PO BID #180 tab 07/30/18 09/08/18 tablet,extended release acyclovir 400 mg tablet 400 mg PO BID #180 tab 08/04/18 09/08/18 albuterol sulfate HFA 90 2 puff IH Q6H PRN 08/04/18 09/08/18 mcg/actuation aerosol inhaler dexamethasone 0.5 mg tablet 0.5 mg PO DAILY tab 08/04/18 09/08/18 diphenoxylate-atropine 2.5 1 tab PO Q6H PRN tab 08/04/18 09/08/18 mg-0.025 mg tablet furosemide 40 mg tablet 40 mg PO BID 08/04/18 09/08/18 metoprolol succinate ER 100 mg 100 mg PO DAILY 08/04/18 09/08/18 tablet,extended release 24 hr nystatin 100,000 unit/gram topical 1 applic TP TID 08/04/18 09/08/18 powder omeprazole 40 mg capsule,delayed 40 mg PO DAILY 08/04/18 09/08/18 release sucralfate 1 gram tablet 1 gm PO BID tab 08/04/18 09/08/18 hydrocodone-acetaminophen 1 tab PO Q6H PRN #10 tab 09/09/18 lidocaine 1 patch TP DAILY #15 each 09/09/18 Previous Rx's Medication Instructions Recorded nystatin 1 applic TOPICAL TID #1 jar 11/24/17 potassium chloride ER 20 mEq 20 meq PO BID #180 tab 07/30/18 tablet,extended release acyclovir 400 mg tablet 400 mg PO BID #180 tab 08/04/18 hydrocodone-acetaminophen 1 tab PO Q6H PRN #10 tab 09/09/18 lidocaine 1 patch TP DAILY #15 each 09/09/18 Allergies Allergy/AdvReac Type Severity Reaction Status Date / Time adhesive Allergy Unverified 09/08/18 20:31 rosuvastatin calcium AdvReac Dizziness/L Unverified 09/08/18 20:31 [From Crestor] ightheade simvastatin [From Zocor] AdvReac Dizziness/L Unverified 09/08/18 20:31 ightheade General Stated Complaint: Recheck ROSLYN: 4 Review of Systems Constitutional Denies chills, Denies fever(s), Denies headache(s) and Reports weakness Eyes Denies change in vision and Denies eye pain ENT Denies headache(s), Denies epistaxis and Denies neck pain Cardiovascular Denies chest pain, Denies syncope, Denies irregular heart rhythm and Denies dyspnea Respiratory Denies cough, Reports pain on inspiration and Denies dyspnea Gastrointestinal Denies abdominal pain, Denies diarrhea, Denies nausea and Denies vomiting Genitourinary Denies hematuria Musculoskeletal Reports back pain, Denies neck pain and Denies numbness Integumentary/Breasts Reports unusual bruising and Denies wounds Neurologic Denies syncope, Denies headache(s), Denies focal weakness, Denies numbness, Denies sensory deficit and Reports weakness PFSH Family History Sister Neoplasm Brother Myocardial infarction Medical History Left lower lobe pneumonia (Acute) Atrial fibrillation DVT (deep venous thrombosis) Essential hypertension GERD (gastroesophageal reflux disease) Multiple myeloma Social History current occupation: HOUSEWIFE Smoking/Tobacco Use Status: Former Tobacco Use second hand exposure: Yes alcohol intake: never Surgical History Cholecystectomy (07/17/16) Hysterectomy, Laproscopic (~1985) Ligation of fallopian tube Oophrectomy, Both (~1989) Exam Const General: cooperative, comfortable and no acute distress Nutritional Appearance: obese Orientation: alert and oriented x3 [facility] Head: normocephalic and atraumatic Neck Neck: full ROM and supple Chest Chest: tenderness rib (right lower ribs) Resp Effort & Inspection: normal respiratory effort Auscultation: rhonchi right lower Cardio Rate: regular rate Rhythm: abnormal rhythm irregularly irregular Heart Sounds: S1 normal and S2 normal GI Palpation: soft, not firm and nontender Back/Spine/Pelvis Back: back tenderness Cervical Spine: No cervical spinal tenderness Thoracic/Lumbar Spine: No thoracic spinal tenderness and No lumbar spinal tenderness Skin General skin exam: ecchymosis (arms/back/flank) Neuro General: alert, oriented x3, no focal motor deficits and CN's II-XI intact bilaterally Course Vital Signs Temperature 98.1 F 09/08/18 20:33 Pulse 87 09/08/18 20:33 Respiratory Rate 16 09/08/18 20:33 Blood Pressure 130/90 09/08/18 20:33 Temperature 98.1 F 09/08/18 20:33 Temperature Source Temporal Artery Scan 09/08/18 20:33 Pulse 87 09/08/18 20:33 Respiratory Rate 16 09/08/18 20:33 Respiratory Effort 09/08/18 20:33 Blood Pressure 130/90 09/08/18 20:33 Pain Level 10 09/08/18 20:33 Comment 09/08/18 20:33
[2018-09-08] MEDS: fentaNYL 100 MCG/2 ML VIAL 25 MCG IVP (22:08)
[2018-09-08] MEDS: Lactated Ringers 1,000 ML 150 ML IV (22:09)
[2018-09-08] MEDS: Lidocaine 5% Patch 1 PATCH TP (22:09)
[2018-09-08 22:12] LABS: Abs Immature Grans 0.17 k/cumm (0.0-0.09); Absolute Basophil Count 0.02 k/cumm (0.0-0.2); Absolute Eosinophil Count 0.09 k/cumm (0.0-0.7); Absolute Lymphocyte Count 0.92 k/cumm (1.2-3.4); Absolute Neutrophil Count 3.76 k/cumm (1.2-6.7); Basophils % 0.3; Eosinophils % 1.6; HCT 33.3 % (36.0-46.0); HGB 10.2 g/dL (12.0-15.5); Mean Corp. HGB Concentration 30.6 g/dL (32.0-36.0); Mean Corpuscular Hemoglobin 34.1 pg (27.0-33.0); Mean Corpuscular Volume 111.4 fL (80-95); Mean Platelet Volume 8.8 fL (8.0-11.0); Monocytes % 13.9; Neutrophils % 65.2; Platelet Count 205 x1000/uL (130-400); RBC 2.99 m/cumm (4.00-5.20); RBC Distribution Width 19.5 % (11.7-14.6); White Blood Cell Count 5.76 k/cumm (4.4-10.8)
[2018-09-08 22:31] LABS: ALT 19 U/L (12-78); AST 17 U/L (15-37); Albumin 2.7 g/dL (3.4-5.0); Alkaline Phosphatase 100 U/L (46-116); Anion Gap 11.3 mmol/L (3-11); BUN 12 mg/dL (7-18); CO2 25.7 mmol/L (21.0-32.0); CREATININE 1.43 mg/dL (0.55-1.02); Calcium 10.5 mg/dL (8.5-10.1); Chloride 101 mmol/L (98-107); Estimated GFR 35.97 (mL/min/1.73m2); Glucose 159 mg/dL (70-100); Potassium 3.9 mmol/L (3.5-5.1); Sodium 138 mmol/L (136-145)
[2018-09-08 22:38] LABS: INR 1.1 (1.0-3.5); PTT Activated 20.3 sec (21.0-31.4)
[2018-09-08 22:43] LABS: Diff Comment RBC Morph Reviewed
[2018-09-08 22:44] LABS: Anisocytosis 3+
[2018-09-08 22:45] LABS: Macrocytosis 3+
--- NOTE | 2018-09-08 23:10 | DI.CT_ITS ---
SYMPTOMS/DIAGNOSIS: MULTIPLE FALLS RECENTLY, ECCHYMOSIS, RIB PAIN CT EXAMINATION OF THE CHEST, ABDOMEN AND PELVIS: The study was carried out without contrast enhancement. Lack of IV contrast material limits the vascular evaluation in this patient. Note is made of a right-sided intravenous line, the tip in the vena cava. There are patchy ground-glass opacities in the right mid lung and lower lungs bilaterally. This could conceivably represent atelectasis, infection, or aspiration or contusion in the appropriate clinical setting. There is no pneumothorax. The heart is normal. There is no pericardial effusion. There is no aortic aneurysm. There is no lymphadenopathy. Examination of the abdomen and pelvis was carried out according to the usual protocol. The patient is status post cholecystectomy. The pancreas, and spleen and adrenals are normal. Note is made of nonobstructing left renal calculi. 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 There is no evidence of bowel obstruction and nothing specific to suggest an acute appendix. There is some wall thickening in the region of the superior aspect of the urinary bladder, this finding likely related to underdistention. A urachal remnant could cause this appearance as well. The patient is status post hysterectomy. No adnexal masses seen. There is no evidence of free air or free fluid in the intraperitoneal space. Degenerative changes involving the spine are identified. Persistent lucent regions within the bones would be consistent with the patient's history of multiple myeloma. Note is made of minimal anterolisthesis of L4 on L5. Postsurgical changes are noted involving anterior abdominal wall. There is no aortic aneurysm. There is no lymphadenopathy. SUMMARY: Persistent skeletal radiolucencies would be consistent with the patient's history of multiple myeloma. Note is made of a nonobstructing left renal calculus. There is some wall thickening involving the region of the anterior superior aspect of the urinary bladder, likely on the basis of underdistention.
[2018-09-08] MEDS: HYDROcodone 5/Acetaminophen 325 TAB PO (23:23)
[2018-09-08 23:47] LABS: Bilirubin Negative (Negative); Blood Negative (Negative); Clarity Clear; Glucose Negative (Negative); Ketones Trace mg/dL (Negative); Leukocyte Esterase Trace (Negative); Nitrite Negative (Negative); Urobilinogen 0.2 EU/dL (Up TO 0.2); pH 5.5 (5-8)
[2018-09-08 23:54] LABS: Bacteria Negative HPF (Negative); C & S Indicated? No/Sq. Contamination; Casts Negative LPF (Negative); Crystals Negative HPF (Negative); Epithelial Cells Many HPF (Negative); Mucus Negative (Negative); Other Cells Rare Renal (Negative); RBC Negative (0-2)
--- NOTE | 2018-09-08 23:55 | DI.VRAD_ITS ---
EXAM: CT Chest Without Intravenous Contrast EXAM DATE/TIME: 09/08/2018 10:48 PM CLINICAL HISTORY: 73 years old, female; Injury or trauma; Fall; Initial encounter; Blunt; Ruq; Blunt trauma (contusions or hematomas); Injury date: 09/06/18; Injury details: Fall with back pain and pain on right side of chest abd area. No contrast due to labs; Prior surgery; Surgery date: 6+ months; Surgery type: Gallbladder and hysterectomy TECHNIQUE: Axial computed tomography images of the chest without intravenous contrast. All CT scans at this facility use at least one of these dose optimization techniques: automated exposure control; mA and/or kV adjustment per patient size (includes targeted exams where dose is matched to clinical indication); or iterative reconstruction. Coronal and sagittal reformatted images were created and reviewed. COMPARISON: CT chest/abd/pel wo 08/09/2018 9:05 PM FINDINGS: Limitations: Evaluation of the vasculature is limited secondary to the lack of IV contrast. Tubes, catheters and devices: There is a right-sided line with tip overlying SVC. Lungs: There are patchy and groundglass opacities in the right mid lung and lower lungs bilaterally. These could represent areas of atelectasis, infection, aspiration, or contusion in the setting of trauma. Pleural space: No pneumothorax. Heart: Normal. No cardiomegaly. No pericardial effusion. Aorta: No abdominal aortic aneurysm. Lymph nodes: Unremarkable. No enlarged lymph nodes. Bones/joints: Skeletal degenerative changes. There is a healing right rib fracture on series 5 image 54, postero-lateral. There is an acute appearing fracture of the right posterior 11th rib, image 52. There is scoliosis. Soft tissues: Unremarkable. Other findings: Vascular calcifications. Again noted are small scattered lucencies within the skeleton in this patient with a history of multiple myeloma. IMPRESSION: 1. There are patchy and groundglass opacities in the right mid lung and lower lungs bilaterally. These could represent areas of atelectasis, infection, aspiration, or contusion in the setting of trauma. 2. There is an acute appearing fracture of the right posterior 11th rib, image 52. 3. Persistent scattered lucencies in the skeleton consistent with the patient's history of multiple myeloma. EXAM: CT Abdomen and Pelvis Without Intravenous Contrast EXAM DATE/TIME: 09/08/2018 10:48 PM CLINICAL HISTORY: 73 years old, female; Injury or trauma; Fall; Initial encounter; Blunt; Ruq; Blunt trauma (contusions or hematomas); Injury date: 09/06/18; Injury details: Fall with back pain and pain on right side of chest abd area. No contrast due to labs; Prior surgery; Surgery date: 6+ months; Surgery type: Gallbladder and hysterectomy TECHNIQUE: Axial computed tomography images of the abdomen and pelvis without intravenous contrast. All CT scans at this facility use at least one of these dose optimization techniques: automated exposure control; mA and/or kV adjustment per patient size (includes targeted exams where dose is matched to clinical indication); or iterative reconstruction. Coronal and sagittal reformatted images were created and reviewed. COMPARISON: CT chest/abd/pel wo 08/09/2018 9:05 PM FINDINGS: Limitations: Evaluation of the intra-abdominal organs and vasculature is limited secondary to lack of IV contrast. Evaluation of the bowel is limited secondary to the lack of oral contrast. Lower thorax: See dictation from CT scan of the chest. ABDOMEN: Liver: Normal. No mass. Gallbladder and bile ducts: Cholecystectomy clips. Pancreas: Normal. No ductal dilation. Spleen: Normal. No splenomegaly. Adrenals: Normal. No mass. Kidneys and ureters: Nonobstructive left renal calcification. 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 Appendix: Appendix not clearly seen. PELVIS: Bladder: There is wall thickening in the region of the anterior superior aspect of the urinary bladder (series 7 image 89). This could be related to underdistention or a small focus of infection or pathology. A urachal remnant could also produce this appearance. Reproductive: Uterus is not identified. No large adnexal masses. ABDOMEN and PELVIS: Intraperitoneal space: Normal. No free air. No significant fluid collection. Bones/joints: Skeletal degenerative changes. Persistent lucent regions within the bones consistent with the patient's history of multiple myeloma. Minimal anterolisthesis of L4 on L5, unchanged. Soft tissues: Postsurgical changes to the anterior abdominal wall. Vasculature: Normal. No abdominal aortic aneurysm. Lymph nodes: Normal. No enlarged lymph nodes. IMPRESSION: 1. Persistent lucencies within the skeleton consistent with the patient's history of multiple myeloma. 2. Nonobstructive left renal calculus. 3.There is wall thickening in the region of the anterior superior aspect of the urinary bladder (series 7 image 89). This could be related to underdistention or a small focus of infection or pathology. A urachal remnant could also produce this appearance. 4. Other findings as above. Dictated and Authenticated by: Margoth Dobbs MD. Ordering:RICHARD JEONG MD
[2018-09-09] MEDS: HYDROcodone 5/Acetaminophen 325 TAB PO (00:17)
[2018-09-09 00:18] VITALS: O2SAT 100
== END 2018-09-09 00:36 | disposition home or self-care (01) ==
PROVIDERS: Emergency Provider Emergency Medicine; PCP Family Medicine
DX: S22.31XA Fracture of one rib, right side, initial encounter for closed fracture (principal); W01.0XXA Fall on same level from slipping, tripping and stumbling without subsequent striking against object, initial encounter; R29.6 Repeated falls; C90.00 Multiple myeloma not having achieved remission; I10 Essential (primary) hypertension
CPT/HCPCS: 36415; 71250; 80053; 96361; 96374; 99284; 74176; 81003; 81015; 85025; 85610; 85730; J3010

== ENCOUNTER 2018-09-23 09:00 | Outpatient (RCR) | payer MEDICARE, SELFPAY ==
[2018-09-23] MEDS: Normal Saline Flush 10 ML SYR IVP (09:04)
[2018-09-23 09:23] LABS: Abs Immature Grans 0.26 k/cumm (0.0-0.09); HCT 28.4 % (36.0-46.0); HGB 8.7 g/dL (12.0-15.5); Mean Corp. HGB Concentration 30.6 g/dL (32.0-36.0); Mean Corpuscular Hemoglobin 34.9 pg (27.0-33.0); Mean Corpuscular Volume 114.1 fL (80-95); Platelet Count 194 x1000/uL (130-400); RBC 2.49 m/cumm (4.00-5.20); RBC Distribution Width 18.7 % (11.7-14.6)
[2018-09-23 09:36] LABS: ALT 17 U/L (12-78); AST 13 U/L (15-37); Albumin 2.2 g/dL (3.4-5.0); Alkaline Phosphatase 108 U/L (46-116); Anion Gap 11.8 mmol/L (3-11); BUN 23 mg/dL (7-18); Bilirubin, Total 0.7 mg/dL (0.2-1.0); CO2 24.2 mmol/L (21.0-32.0); Calcium 11.3 mg/dL (8.5-10.1); Chloride 103 mmol/L (98-107); Estimated GFR 40.15 (mL/min/1.73m2); Glucose 182 mg/dL (70-100); Potassium 3.5 mmol/L (3.5-5.1); Sodium 139 mmol/L (136-145)
[2018-09-23 09:41] LABS: Absolute Eosinophil Count 0.06 k/cumm (0.0-0.7); Absolute Monocyte Count 0.58 k/cumm (0.11-0.7); Absolute Neutrophil Count 4.06 k/cumm (1.2-6.7); Atypical Lymphocytes % 1
[2018-09-23 09:42] LABS: Anisocytosis 2+; Diff Comment Manual Differential; Hypochromasia 2+; Macrocytosis 3+; Polychromasia Present
[2018-09-24 12:17] LABS: Albumin 32.9 % (55.8-66.1); Total Protein 7.9 g/dl (6.3-8.2)
[2018-09-24 12:25] LABS: IgA <13 mg/dL (85-499); IgG 4361 mg/dL (610-1616); IgM <12 mg/dL (35-242); Kappa Free Light Chain 0.51 mg/dl (0.33-1.94); Lambda Free Light Chain <0.44 mg/dl (0.57-2.63)
== END 2018-09-23 23:59 | disposition home or self-care (01) ==
LOC: INF 09:00
PROVIDERS: PCP Family Medicine; Visit Provider Internal Medicine Hematology & Oncology
DX: C90.00 Multiple myeloma not having achieved remission (principal); Z45.2 Encounter for adjustment and management of vascular access device
CPT/HCPCS: 36591; 80053; 82784; 83883; 84165; 85025

== ENCOUNTER 2018-09-30 01:34 | Outpatient (RCR) | payer MEDICARE, SELFPAY ==
[2018-09-30] MEDS: Normal Saline Flush 10 ML SYR IVP (12:00)
[2018-09-30 12:16] LABS: HCT 26.1 % (36.0-46.0); HGB 7.9 g/dL (12.0-15.5); Mean Corp. HGB Concentration 30.3 g/dL (32.0-36.0); Mean Corpuscular Hemoglobin 34.8 pg (27.0-33.0); Mean Platelet Volume 8.9 fL (8.0-11.0); Platelet Count 196 x1000/uL (130-400); RBC 2.27 m/cumm (4.00-5.20); RBC Distribution Width 18.4 % (11.7-14.6); White Blood Cell Count 5.93 k/cumm (4.4-10.8)
[2018-09-30 12:24] LABS: ALT 16 U/L (12-78); AST 14 U/L (15-37); Albumin 2.2 g/dL (3.4-5.0); Alkaline Phosphatase 105 U/L (46-116); Anion Gap 11.8 mmol/L (3-11); BUN 16 mg/dL (7-18); Bilirubin, Total 0.5 mg/dL (0.2-1.0); CO2 22.2 mmol/L (21.0-32.0); CREATININE 1.42 mg/dL (0.55-1.02); Calcium 11.2 mg/dL (8.5-10.1); Chloride 104 mmol/L (98-107); Estimated GFR 36.26 (mL/min/1.73m2); Glucose 135 mg/dL (70-100); Potassium 3.6 mmol/L (3.5-5.1); Sodium 138 mmol/L (136-145); Total Protein 9.5 g/dL (6.4-8.2)
[2018-09-30 12:49] LABS: Absolute Eosinophil Count 0.12 k/cumm (0.0-0.7); Absolute Lymphocyte Count 1.36 k/cumm (1.2-3.4); Absolute Monocyte Count 0.47 k/cumm (0.11-0.7); Absolute Neutrophil Count 3.44 k/cumm (1.2-6.7); Promyelocytes % 1 %
[2018-09-30 12:50] LABS: Anisocytosis 2+; Diff Comment Manual Differential; Macrocytosis 2+; Nucleated RBC 3 /100WBC; Polychromasia Present
== END 2018-10-23 23:59 | disposition home or self-care (01) ==
LOC: INF 01:34
PROVIDERS: PCP Family Medicine; Visit Provider Internal Medicine Hematology & Oncology
DX: C90.00 Multiple myeloma not having achieved remission (principal); Z45.2 Encounter for adjustment and management of vascular access device
CPT/HCPCS: 36591; 80053; 85025